=== PATIENT | male | born 1985 | race Caucasian/White ===

== ENCOUNTER 2019-08-03 15:31 | Inpatient (IN) ==
[2019-08-03] MEDS ORDERED: ACETAMINOPHEN 325 MG TABLET PO ONE (15:54)
[2019-08-03] MEDS ORDERED: cefTRIAXone 1 GM VIAL IV ONE (16:05)
--- NOTE | 2019-08-03 16:25 | XRay Report ---
INDICATION: left hand and wrist pain, edema TECHNIQUE: PA, oblique, lateral left wrist COMPARISON: None. FINDINGS: No left wrist fracture. No cortical destruction. No evidence for osteomyelitis. No soft tissue gas or radiopaque foreign body. 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 Mild degenerative disease in the left triscaphe joint and first carpal metacarpal joint IMPRESSION: 1. No acute abnormality 2. 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
[2019-08-03] MEDS ORDERED: KETOROLAC 30 MG/ML VIAL IV ONE (17:10)
[2019-08-03 17:27] LABS: Basophils # (Auto) 0.04 K/mcL (0.00-0.30); Basophils % (Auto) 0.3 % (0.0-2.0); Eosinophils # (Auto) 0.01 K/mcL (0.00-0.70); Eosinophils % (Auto) 0.1 % (0.0-7.0); Granulocytes % (Auto) 83.2 % (38.0-78.0); Hematocrit 37.7 % (40.1-51.0); Hemoglobin 12.5 g/dL (13.7-17.5); Lymphocytes % (Auto) 9.2 % (15.5-49.0); Mean Cell Volume 80.6 fL (80.0-100.0); Mean Corpuscular HGB Conc 33.2 g/dL (31.0-36.0); Mean Platelet Volume 9.6 fL (7.4-10.4); Monocytes # (Auto) 1.09 K/mcL (0.10-0.90); Monocytes % (Auto) 7.2 % (1.0-12.0); Platelet Count 270 K/mcL (140-440); RBC 4.68 M/mcL (4.63-6.08); Red Cell Distribution Width 12.7 % (11.5-14.5); WBC 15.2 K/mcL (4.50-11.00)
[2019-08-03 17:44] LABS: Chloride 96 mmol/L (96-108)
[2019-08-03 17:45] LABS: ALT/SGPT 22 U/l (0-40); AST/SGOT 20 U/l (0-37); Albumin 3.6 gm/dL (3.2-5.2); Albumin/Globulin Ratio 0.9 (1.0-2.3); Alkaline Phosphatase 82 U/L (39-117); Bilirubin,Total 0.4 mg/dL (0.0-1.0); Blood Urea Nitrogen 10 mg/dl (6-20); C-Reactive Protein 19.7 mg/dl (0.0-0.8); Calcium 9.1 mg/dl (8.6-10.4); Carbon Dioxide 27 mmol/L (22-30); Globulin 3.9 gm/dL (2.2-3.7); Glomerular Filtration Rate 111; Glucose 110 mg/dL (70-105)
--- NOTE | 2019-08-03 18:51 | Cat Scan Report ---
INDICATION: swelling, redness, warmth, decreased range of movement, poss absc TECHNIQUE: Axial images through the left forearm and wrist. Sagittal and coronal reformatted images COMPARISON: Plain film examination dated 08/03/2019 FINDINGS: Left radius and ulna are negative. There is no fracture. No cortical destruction. No evidence for osteomyelitis. 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 No left wrist fracture. Carpal bones are otherwise negative. No cortical destruction or evidence for osteomyelitis. Axial images demonstrate a normal hook of the hamate. There is a poorly defined soft tissue mass adjacent to the radial and volar aspects of the distal right radius. This mass is best identified on sagittal and coronal reformatted images. This measures approximately 4.8 x 3.3 x 3.3 cm. This appears to be intramuscular and involves flexor muscles including the flexor pollicis longus and flexor digitorum superficialis. Appearance is most consistent with hematoma. There are no gas bubbles, but this does not exclude abscess. Although this mass is near isodense it is relatively circumscribed on sagittal reformatted images. Patient complains of paresthesias. This mass could affect the median nerve. Clinical correlation median nerve neuropathy recommended (first through third digits). No other abnormality IMPRESSION: 1. 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 No left wrist or forearm fracture 2. Soft tissue mass which appears to be intramuscular along the radial and volar aspects of the distal left radius. 3. Mass is soft tissue density without gas bubbles. Findings are most consistent with hematoma although infection is not excluded. Interpreted and Authenticated by: Parker Moss 08/03/19
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
[2019-08-03] MEDS ORDERED: VANCOMYCIN PER PHARMACY IV ONE (19:30)
[2019-08-03] MEDS ORDERED: ceFAZolin 1 GM VIAL IV SCH (19:30)
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
[2019-08-03] MEDS ORDERED: VANCOMYCIN 1,500 MG in 0.9 % SODIUM CHLORIDE 500 ML IV ONE (19:56)
[2019-08-03] MEDS ORDERED: [UNRECOGNIZED DRUG - OTHER] SUBLINGUAL SCH (21:03)
[2019-08-03] MEDS ORDERED: MAGNESIUM SULFATE 2 GM/50 ML BAG IV PRN (21:03)
[2019-08-03] MEDS ORDERED: NALOXONE HCL SUBLINGUAL SCH (21:03)
[2019-08-03] MEDS ORDERED: BUPRENORPHINE HCL SUBLINGUAL SCH (21:03)
[2019-08-03] MEDS ORDERED: POTASSIUM CHLORIDE 20 MEQ TABLET PO PRN ×2 (21:03)
[2019-08-03] MEDS ORDERED: SENNOSIDES 1 TABLET PO PRN (21:03)
[2019-08-03] MEDS ORDERED: POTASSIUM CHLORIDE 40 MEQ in DEXTROSE 5% IN WATER 500 ML IV PRN (21:03)
[2019-08-03] MEDS ORDERED: POLYETHYLENE GLYCOL 3350 17 GM PACKET PO PRN (21:03)
[2019-08-03] MEDS ORDERED: ONDANSETRON 4 MG/2 ML VIAL IV PRN (21:03)
[2019-08-03] MEDS ORDERED: 0.9 % SODIUM CHLORIDE 1,000 ML IV SCH (21:03)
[2019-08-03] MEDS: LORazepam 2 MG/ML VIAL IV PRN (22:12)
[2019-08-03] MEDS: DOCUSATE SODIUM 100 MG CAPSULE PO SCH (22:13)
[2019-08-03] MEDS: 0.9 % SODIUM CHLORIDE 10 ML SYRINGE IV SCH (22:13)
[2019-08-03] MEDS: CLINDAMYCIN 600 MG in DEXTROSE 5% IN WATER 50 ML IV SCH ×2 (22:53)
[2019-08-03] MEDS: CLINDAMYCIN 600 MG/4 ML VIAL ONE ×2 (22:53)
[2019-08-03] MEDS: HYDROcodone/APAP 5/325MG TABLET PO PRN (23:56)
[2019-08-03] MEDS: PIPERACILLIN SODIUM/TAZOBACTAM 3.375 GM in DEXTROSE 5% IN WATER 50 ML IV SCH (23:57)
[2019-08-04] MEDS: LORazepam 2 MG/ML VIAL IV PRN ×4 (02:16→21:09)
[2019-08-04] MEDS: HYDROcodone/APAP 5/325MG TABLET PO PRN (04:26)
[2019-08-04] MEDS: PIPERACILLIN SODIUM/TAZOBACTAM 3.375 GM in DEXTROSE 5% IN WATER 50 ML IV SCH ×4 (06:05→23:59)
[2019-08-04] MEDS: 0.9 % SODIUM CHLORIDE 10 ML SYRINGE IV SCH ×3 (06:05→21:10)
[2019-08-04 06:18] LABS: Basophils # (Auto) 0.06 K/mcL (0.00-0.30); Basophils % (Auto) 0.5 % (0.0-2.0); Eosinophils # (Auto) 0.13 K/mcL (0.00-0.70); Granulocytes % (Auto) 74.7 % (38.0-78.0); Hemoglobin 11.7 g/dL (13.7-17.5); Lymphocytes # (Auto) 1.96 K/mcL (1.50-4.80); Lymphocytes % (Auto) 15.4 % (15.5-49.0); Mean Corpuscular HGB Conc 32.5 g/dL (31.0-36.0); Mean Platelet Volume 9.7 fL (7.4-10.4); Monocytes # (Auto) 1.07 K/mcL (0.10-0.90); Monocytes % (Auto) 8.4 % (1.0-12.0); Platelet Count 241 K/mcL (140-440); RBC 4.39 M/mcL (4.63-6.08); Red Cell Distribution Width 12.9 % (11.5-14.5); WBC 12.8 K/mcL (4.50-11.00)
[2019-08-04 06:43] LABS: ALT/SGPT 19 U/l (0-40); AST/SGOT 13 U/l (0-37); Albumin 3.2 gm/dL (3.2-5.2); Albumin/Globulin Ratio 0.8 (1.0-2.3); Alkaline Phosphatase 78 U/L (39-117); Bilirubin,Direct < 0.2 mg/dL (0.0-0.3); Bilirubin,Total 0.3 mg/dL (0.0-1.0); Blood Urea Nitrogen 12 mg/dl (6-20); Calcium 8.8 mg/dl (8.6-10.4); Carbon Dioxide 28 mmol/L (22-30); Chloride 98 mmol/L (96-108); Globulin 3.9 gm/dL (2.2-3.7); Glomerular Filtration Rate 111; Glucose 106 mg/dL (70-105); Lactate Dehydrogenase 177 U/L (94-250); Phosphorous 3.3 mg/dL (2.7-4.5); Triglycerides 118 mg/dl (<150); Uric Acid 4.1 mg/dL (2.5-8.0)
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
[2019-08-04] MEDS: CLINDAMYCIN 600 MG in DEXTROSE 5% IN WATER 50 ML IV SCH (07:31)
[2019-08-04] MEDS ORDERED: HYDROcodone/APAP 10/325MG TABLET PO PRN (08:26)
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
[2019-08-04] MEDS ORDERED: VANCOMYCIN PER PHARMACY IV SCH ×2 (08:45→18:06)
[2019-08-04] MEDS: DOCUSATE SODIUM 100 MG CAPSULE PO SCH ×2 (08:54→19:49)
[2019-08-04] MEDS ORDERED: VANCOMYCIN 1,500 MG in 0.9 % SODIUM CHLORIDE 500 ML IV SCH (09:00)
[2019-08-04] MEDS: HYDROmorphone* 2 MG/ML VIAL IV PRN ×2 (13:31→14:33)
[2019-08-04] MEDS ORDERED: ROPIVACAINE HCL/PF 30 ML VIAL IJ ONE (15:28)
[2019-08-04] MEDS ORDERED: TRANEXAMIC ACID 1,000 MG/10 ML VIAL IV ONE (15:28)
[2019-08-04] MEDS ORDERED: KETAMINE 100 MG/ML ML IV ONE (15:28)
[2019-08-04] MEDS ORDERED: MIDAZOLAM 2 MG/2 ML VIAL IV ONE (15:28)
[2019-08-04] MEDS ORDERED: GLYCOPYRROLATE 0.2 MG/ML VIAL IV ONE (15:28)
[2019-08-04] MEDS ORDERED: DEXAMETHASONE 10 MG/ML VIAL IV ONE (15:28)
[2019-08-04] MEDS ORDERED: LIDOCAINE HCL/PF 100 MG/5 ML SYRINGE IV ONE (15:28)
[2019-08-04] MEDS ORDERED: PROPOFOL 200 MG/20 ML VIAL IV ONE (15:28)
[2019-08-04] MEDS ORDERED: ONDANSETRON 4 MG/2 ML VIAL IV ONE (15:28)
[2019-08-04] MEDS ORDERED: fentaNYL 100 MCG/2 ML VIAL IV ONE (15:28)
[2019-08-04] MEDS ORDERED: HYDROmorphone* 2 MG/ML VIAL IV PRN ×2 (16:00→18:06)
[2019-08-04] MEDS ORDERED: ONDANSETRON 4 MG/2 ML VIAL IV PRN ×2 (16:00→18:06)
[2019-08-04] MEDS ORDERED: LACTATED RINGERS 1,000 ML IV SCH (16:00)
[2019-08-04] MEDS ORDERED: MEPERIDINE 25 MG/ML SYRINGE IV PRN (16:00)
[2019-08-04] MEDS ORDERED: METHOCARBAMOL 1,000 MG/10 ML VIAL IV PRN (16:00)
[2019-08-04] MEDS ORDERED: IPRATROPIUM/ALBUTEROL 3 ML AMPUL.NEB NEB PRN (16:00)
--- NOTE | 2019-08-04 16:46 | Brief Operative Note ---
Date of procedure: 08/04/19 Pre-op diagnosis: Left wrist abscess Post-op diagnosis: same Procedure: left wrist abscess 2cm by 3 cm Grafts/Implants: Yes Anesthesia: GETA Complications Description: 08/04/19 16:46 none Surgeon: Rasta Phelan Stacker Driver: TERI Mendez Estimated blood loss (cc): 100 Tourniquet Time (Minutes): 10 Specimens Removed/Pathology: none sent Condition: stable Disposition: PACU
[2019-08-04] MEDS ORDERED: LORazepam 2 MG/ML VIAL IV ONE (16:55)
[2019-08-04] MEDS ORDERED: METOPROLOL TARTRATE 5 MG/5 ML VIAL IV ONE (17:30)
[2019-08-04] MEDS ORDERED: SENNOSIDES 1 TABLET PO PRN (18:06)
[2019-08-04] MEDS ORDERED: POTASSIUM CHLORIDE 40 MEQ in DEXTROSE 5% IN WATER 500 ML IV PRN (18:06)
[2019-08-04] MEDS ORDERED: MAGNESIUM SULFATE 2 GM/50 ML BAG IV PRN (18:06)
[2019-08-04] MEDS ORDERED: POLYETHYLENE GLYCOL 3350 17 GM PACKET PO PRN (18:06)
[2019-08-04] MEDS ORDERED: POTASSIUM CHLORIDE 20 MEQ TABLET PO PRN ×2 (18:06)
[2019-08-04] MEDS: HYDROcodone/APAP 10/325MG TABLET PO PRN ×2 (19:49→23:59)
[2019-08-04] MEDS: VANCOMYCIN 1,500 MG in 0.9 % SODIUM CHLORIDE 500 ML IV SCH (21:10)
[2019-08-04] MEDS: DIAZEPAM 2 MG TABLET PO PRN (22:49)
[2019-08-05] MEDS: LORazepam 2 MG/ML VIAL IV PRN ×6 (01:56→22:42)
[2019-08-05] MEDS: HYDROcodone/APAP 10/325MG TABLET PO PRN ×4 (04:08→15:58)
[2019-08-05] MEDS: 0.9 % SODIUM CHLORIDE 10 ML SYRINGE IV SCH ×4 (05:50→20:05)
[2019-08-05] MEDS: PIPERACILLIN SODIUM/TAZOBACTAM 3.375 GM in DEXTROSE 5% IN WATER 50 ML IV SCH ×3 (05:50→18:30)
--- NOTE | 2019-08-05 07:00 | Operative Note ---
DATE OF OPERATION: 08/04/2019 PREOPERATIVE DIAGNOSIS: Left wrist abscess. POSTOPERATIVE DIAGNOSIS: Left wrist abscess. PROCEDURE: Left wrist abscess I and D with placement of a drain. SURGEON: Rasta Phelan MD [employer] OPERATOR: None. ANESTHESIA: General LMA anesthesia by Dr. Gray. TOTAL TOURNIQUET TIME: Approximately 15 minutes. ESTIMATED BLOOD LOSS: 100 mL, pus retrieved about 25 mL. DESCRIPTION OF PROCEDURE: The patient was brought to the operating room and put to sleep with general LMA anesthesia. Once asleep, the patient had the left arm sterilely prepped and draped in the usual sterile fashion. A timeout was performed confirming the operative site by initials, consent form and x-rays. Once done, we were able to confirm the area. An incision about an inch and a half long was made in a linear fashion over the flexor carpi radialis. We identified the flexor sheath and identified an abscess. There was significant induration around the wrist area. The chronicity of the problem was quite evident. The pus pocket was about 2 x 3 x 2 cm. The pus was easily retrieved and evacuated. I then placed a COLETTE drain into the wound and this was passed subcutaneous. Once this was done, we deflated the tourniquet and closed the skin with 3-0 Monocryl and then randall. Once this was done, we then irrigated thoroughly and the total irrigation through the wound was about 1000 mL. The patient tolerated this well. The tourniquet was inflated to 220 pound of pressure and deflated at approximately 15 minutes. Sterile bandage was applied. There were no complications. RBH:kh Job ID: [id number] Doc ID: [id number] Rasta Phelan MD
[2019-08-05] MEDS ORDERED: ENOXAPARIN 40 MG/0.4 ML SYRINGE SQ ONE (07:42)
--- NOTE | 2019-08-05 07:43 | Internal Med Progress Note ---
Medical - PN: Subj Patient information: Note initiated : 08/05/19 at 7:39 am Service Date, if different from initiated Date: [] Patient: Phil Tucker a 34 y/o M admitted on 08/03/19 for swollen left hand. Chief Complaint: [] Interval history: Mr. Tucker is a 34 year old M 34-year-old presents to the ED for increasing redness swelling and pain of his left hand wrist forearm started 3 days ago. Patient states injured initially while being handcuffed in July 07. He states it was just abrasions about 3 days ago and started swelling and becoming red and tender. Has a hard time making a fist or flexing extending his wrist because of the swelling. He complains of fevers chills past several days and headaches. CT of the wrist shows appears to be an abscess. Dr. Keller orthopedic surgery was contacted from the ED who will consult on the patient. Patient will likely need I&D. 08/03 Patient feels as swelling is slightly improved. He has decreased sensation in the hand. But is able to move his fingers a little bit more. Redness appears to be slightly improved. 08/04 States poor sleep last night after the nerve block wore off. Current as needed morphine dose does not seem to be helping much. Otherwise no complaints. Review of Systems: Headaches and chills . denies fever/nausea/vomiting/chest or abdominal pain/cough/dyspnea/diarrhea. Otherwise see above. - Constitutional Vitals: Vital Signs Temp Pulse Resp BP Pulse Ox 97.6 F 64 18 139/87 96 08/05/19 07:13 08/05/19 07:13 08/05/19 07:13 08/05/19 07:13 08/05/19 07:13 Period Temp Pulse Resp BP Sys/Stevenson Pulse Ox Last 24 Hr 97.3 F-98.7 F 64-121 16-24 126-192/75-110 93-99 Intake and Output 08/04/19 08/05/19 08/05/19 21:59 05:59 13:59 Intake Total 1400 50 Output Total 100 15 Balance 1300 35 Weight 108.545 kg Intake & Output: Intake & Output 08/04/19 08/05/19 08/05/19 21:59 05:59 13:59 Intake Total 1400 50 Output Total 100 15 Balance 1300 35 Weight 108.545 kg Intake: IV 100 50 Lactated Ringers 1,000 ml @ 20 100 mls/hr IV .Q24H [facility] Rx#: [id number] Zosyn 3.375 gm In Dextrose 5% 50 in Water 50 ml @ 100 mls/hr IV Q6H [facility] Rx#:[id number] IV - Manual Only 1300 Output: Drainage 15 Left Wrist 15 Estimated Blood Loss 100 Other: Urine Appearance Clear Clear Urine Odor Normal Normal # Voids 1 1 Exam: General: Alert, Awake, No acute Distress Eyes/N/T: EOMI, Head/Neck: neck supple, CV: RRR, No murmurs, Pulm: Clear b/l, no wheezing/rhonchi/rales Abd: soft, nontender, +BS x4 Ext: no clubbing/cyanosis/edema LEs, Left hand/wrist in dressings, needle track dominguez b/l antecubital space Neuro: Alert, no focal deficits, moves all extremities, Skin: warm/dry Medical - PN: Obj Da - Labs CBC & Chem 7: 08/04/19 05:18 08/04/19 05:18 Labs: Abnormal Lab Results 08/04/19 08/04/19 08/03/19 05:18 05:18 16:35 WBC 12.8 H RBC 4.39 L Hgb 11.7 L Hct 36.0 L Gran % Lymph % (Auto) 15.4 L Gran # 9.53 H Lymph # (Auto) [place] # (Auto) 1.07 H Glucose 106 H 110 H C-Reactive Protein 18.0 H 19.7 H Globulin 3.9 H 3.9 H Albumin/Globulin Ratio 0.8 L 0.9 L 08/03/19 16:35 WBC 15.2 H RBC Hgb 12.5 L Hct 37.7 L Gran % 83.2 H Lymph % (Auto) 9.2 L Gran # 12.63 H Lymph # (Auto) 1.40 L [place] # (Auto) 1.09 H Glucose C-Reactive Protein Globulin Albumin/Globulin Ratio Meds: Medications Hydrocodone Bitart/Acetaminophen ([place] 10/325mg) 1 - 2 tab PO Q4HP PRN; Protocol PRN Reason: Per Pain Protocol Last Admin: 08/05/19 04:08 Dose: 2 tab Documented by: Diazepam (Valium) 2 mg PO HSP PRN PRN Reason: ANXIETY/SEDATION Last Admin: 08/04/19 22:49 Dose: 2 mg Documented by: Docusate Sodium (Colace) 100 mg PO BID [facility] Last Admin: 08/04/19 19:49 Dose: 100 mg Documented by: Hydromorphone HCl (Dilaudid) 0.5 mg IV Q1HP PRN; Protocol PRN Reason: Per Pain Protocol Potassium Chloride 40 meq/ (Dextrose) 520 mls @ 130 mls/hr IV UD PRN PRN Reason: Potassium < 3 Magnesium Sulfate (Magnesium Sulfate) 2 gm in 50 mls @ 50 mls/hr IV UD PRN PRN Reason: Magnesium </= 1.6 Piperacillin Sod/Tazobactam (Sod 3.375 gm/ Dextrose) 50 mls @ 100 mls/hr IV Q6H [facility]; Protocol Last Admin: 08/05/19 05:50 Dose: 100 mls/hr Documented by: Vancomycin HCl 1,500 mg/ (Sodium Chloride) 500 mls @ 333.3 mls/hr IV Q12H [facility] Last Admin: 08/04/19 21:10 Dose: 333.3 mls/hr Documented by: Lorazepam (Ativan) 0.5 mg IV Q4-6HP PRN PRN Reason: ANXIETY/SEDATION Last Admin: 08/05/19 05:49 Dose: 0.5 mg Documented by: Morphine Sulfate (Morphine) 0 mg IV Q3HP PRN PRN Reason: Pain Last Admin: 08/05/19 06:39 Dose: 3 mg Documented by: Ondansetron HCl (Zofran) 4 mg IV Q4HP PRN PRN Reason: Nausea And Vomiting Polyethylene Glycol (Miralax) 17 gm PO DAILYP PRN PRN Reason: Constipation Potassium Chloride (Kdur) 40 meq PO UD PRN PRN Reason: Potssium is 3-3.5 Potassium Chloride (Kdur) 40 meq PO UD PRN PRN Reason: Potassium < 3 Senna (Senokot) 2 tab PO DAILYP PRN PRN Reason: Constipation Sodium Chloride (Saline Flush) 10 ml IV Q8 [facility] Last Admin: 08/05/19 05:50 Dose: 10 ml Documented by: Vancomycin HCl (Vancomycin Per Pharmacy) 1 order IV [facility] [place] Medical - PN: A/P - Time Spent With Patient Total time spent is greater than 50% in coordination of care (as documented) at patient's floor/unit and/or counseling patient: - Narrative A/P Narrative: A: *Left upper extremity cellulitis w/Abscess: s/p I&D (08/05) -h/o MRSA (+) wound cultures in past *SIRS (Tachy/leukocytosis): -improving *h/o substance abuse: denies currently *h/o Anxiety/Depression P: -Vanc/zosyn, pending cultures -Dr. Phelan for Ortho following -serum drug screen pending, he would not provide urine sample - -ppx: SCD/Ambulation Medical - PN: Qual - VTE Deep Vein Thrombosis/Pulmonary Embolism Present on Admission: No
[2019-08-05] MEDS: DOCUSATE SODIUM 100 MG CAPSULE PO SCH ×2 (08:02→20:06)
[2019-08-05 10:13] LABS: Basophils # (Auto) 0.02 K/mcL (0.00-0.30); Basophils % (Auto) 0.2 % (0.0-2.0); Eosinophils # (Auto) 0.01 K/mcL (0.00-0.70); Eosinophils % (Auto) 0.1 % (0.0-7.0); Granulocytes % (Auto) 84.2 % (38.0-78.0); Hematocrit 34.1 % (40.1-51.0); Hemoglobin 11.8 g/dL (13.7-17.5); Lymphocytes % (Auto) 10.5 % (15.5-49.0); Mean Cell Volume 79.1 fL (80.0-100.0); Mean Corpuscular HGB Conc 34.6 g/dL (31.0-36.0); Mean Platelet Volume 10.4 fL (7.4-10.4); Monocytes # (Auto) 0.62 K/mcL (0.10-0.90); Platelet Count 281 K/mcL (140-440); RBC 4.31 M/mcL (4.63-6.08); Red Cell Distribution Width 12.9 % (11.5-14.5); WBC 12.4 K/mcL (4.50-11.00)
[2019-08-05] MEDS: VANCOMYCIN 1,500 MG in 0.9 % SODIUM CHLORIDE 500 ML IV SCH ×3 (10:54→22:42)
[2019-08-05 11:04] LABS: Blood Urea Nitrogen 13 mg/dl (6-20); Calcium 9.3 mg/dl (8.6-10.4); Carbon Dioxide 23 mmol/L (22-30); Chloride 102 mmol/L (96-108); Glomerular Filtration Rate 111; Glucose 136 mg/dL (70-105)
--- NOTE | 2019-08-05 13:54 | Orthopedic Progress Note ---
Subjective Patient information: Note initiated : 08/05/19 at 1:53 pm Service Date, if different from initiated Date: [] Patient: Phil Tucker 34 y/o M admitted on 08/03/19 for swollen left hand. Chief Complaint: [pain is less and eating well but co anxiety] Principal diagnosis: left wrist abscess and cellutlitis Objective Vital signs: Vital Signs Temp Pulse Resp BP BP Pulse Ox 08/05/19 11:45 98.0 F 70 18 125/75 96 08/05/19 07:13 97.6 F 64 18 139/87 96 08/05/19 04:04 97.3 F 108 H 16 130/75 97 08/04/19 23:55 98.7 F 67 18 137/82 95 08/04/19 20:57 101 H 152/97 08/04/19 19:58 88 128/79 95 08/04/19 18:58 103 H 158/104 08/04/19 18:43 121 H 149/79 08/04/19 18:00 98.4 F 79 16 143/104 93 08/04/19 17:55 98.0 F 67 16 143/80 97 08/04/19 17:40 97.9 F 68 18 154/85 08/04/19 17:10 98.7 F 89 20 177/107 99 08/04/19 16:53 98.0 F 92 H 24 H 192/109 08/04/19 16:49 97.7 F 78 19 126/76 149/90 99 08/04/19 16:48 97.8 F 81 19 158/110 98 08/04/19 16:43 97.8 F 77 22 143/88 08/04/19 16:38 98.0 F 79 24 H 142/82 97 Intake and Output 08/04/19 08/05/19 08/05/19 21:59 05:59 13:59 Intake Total 1450 550 50 Output Total 100 15 Balance 1350 535 50 Intake: IV 150 550 50 Lactated Ringers 1,000 ml @ 20 100 mls/hr IV .Q24H [facility] Rx#: [id number] Zosyn 3.375 gm In Dextrose 5% 50 50 50 in Water 50 ml @ 100 mls/hr IV Q6H [facility] Rx#:[id number] Vancomycin 1,500 mg In Sodium 500 Chloride 0.9% 500 ml @ 333.3 mls/hr IV Q12H [facility] Rx#: [id number] IV - Manual Only 1300 Output: Drainage 15 Left Wrist 15 Estimated Blood Loss 100 Other: Urine Appearance Clear Clear Urine Odor Normal Normal # Voids 1 1 Weight 239 lb 4.8 oz Intake & Output: Intake & Output 08/04/19 08/05/19 08/05/19 21:59 05:59 13:59 Intake Total 1450 550 50 Output Total 100 15 Balance 1350 535 50 Weight 239 lb 4.8 oz Intake: IV 150 550 50 Lactated Ringers 1,000 ml @ 20 100 mls/hr IV .Q24H [facility] Rx#: [id number] Zosyn 3.375 gm In Dextrose 5% 50 50 50 in Water 50 ml @ 100 mls/hr IV Q6H [facility] Rx#:[id number] Vancomycin 1,500 mg In Sodium 500 Chloride 0.9% 500 ml @ 333.3 mls/hr IV Q12H [facility] Rx#: [id number] IV - Manual Only 1300 Output: Drainage 15 Left Wrist 15 Estimated Blood Loss 100 Other: Urine Appearance Clear Clear Urine Odor Normal Normal # Voids 1 1 - Labs CBC & BMP: 08/05/19 09:33 08/05/19 09:33 Labs: 08/05/19 08/04/19 08/03/19 09:33 05:18 16:35 Hgb 11.8 L 11.7 L 12.5 L Hct 34.1 L 36.0 L 37.7 L
[2019-08-05] MEDS ORDERED: oxyCODONE/APAP 10/325MG TABLET PO PRN (18:57)
[2019-08-05] MEDS ORDERED: oxyCODONE/APAP 10/325MG TABLET PO ONE ×2 (20:03→21:53)
[2019-08-05] MEDS: oxyCODONE/APAP 10/325MG TABLET PO PRN ×2 (20:04→21:52)
[2019-08-05] MEDS: MELATONIN 3 MG TABLET PO SCH (20:05)
[2019-08-05] MEDS: DIAZEPAM 2 MG TABLET PO PRN (20:05)
[2019-08-05] MEDS: diphenhydrAMINE 25 MG CAPSULE PO PRN (21:53)
[2019-08-06] MEDS ORDERED: oxyCODONE/APAP 10/325MG TABLET PO ONE (00:12)
[2019-08-06] MEDS: oxyCODONE/APAP 10/325MG TABLET PO PRN ×9 (00:15→22:33)
[2019-08-06] MEDS: PIPERACILLIN SODIUM/TAZOBACTAM 3.375 GM in DEXTROSE 5% IN WATER 50 ML IV SCH ×3 (00:22→12:31)
[2019-08-06] MEDS: 0.9 % SODIUM CHLORIDE 10 ML SYRINGE IV SCH ×2 (05:14→14:35)
[2019-08-06] MEDS: VANCOMYCIN 1,500 MG in 0.9 % SODIUM CHLORIDE 500 ML IV SCH ×3 (05:46→22:34)
[2019-08-06] MEDS: LORazepam 2 MG/ML VIAL IV PRN ×4 (05:52→18:46)
[2019-08-06 06:52] LABS: Blood Urea Nitrogen 13 mg/dl (6-20); Carbon Dioxide 24 mmol/L (22-30); Chloride 104 mmol/L (96-108); Glomerular Filtration Rate 111; Glucose 87 mg/dL (70-105)
[2019-08-06 06:53] LABS: C-Reactive Protein 5.2 mg/dl (0.0-0.8)
[2019-08-06 07:19] LABS: Basophils # (Auto) 0.05 K/mcL (0.00-0.30); Basophils % (Auto) 0.6 % (0.0-2.0); Eosinophils # (Auto) 0.06 K/mcL (0.00-0.70); Eosinophils % (Auto) 0.7 % (0.0-7.0); Granulocytes % (Auto) 60.1 % (38.0-78.0); Hematocrit 34.6 % (40.1-51.0); Hemoglobin 11.4 g/dL (13.7-17.5); Lymphocytes # (Auto) 2.84 K/mcL (1.50-4.80); Lymphocytes % (Auto) 32.3 % (15.5-49.0); Mean Corpuscular HGB Conc 32.9 g/dL (31.0-36.0); Mean Platelet Volume 11.4 fL (7.4-10.4); Monocytes # (Auto) 0.55 K/mcL (0.10-0.90); Monocytes % (Auto) 6.3 % (1.0-12.0); Platelet Count 203 K/mcL (140-440); RBC 4.27 M/mcL (4.63-6.08); Red Cell Distribution Width 13.2 % (11.5-14.5); WBC 8.8 K/mcL (4.50-11.00)
[2019-08-06] MEDS: DOCUSATE SODIUM 100 MG CAPSULE PO SCH ×2 (12:13→20:43)
--- NOTE | 2019-08-06 16:02 | Infectious Disease Consult ---
History of Present Illness Patient information: Note initiated : 08/06/19 at 4:00 pm Service Date, if different from initiated Date: [] Patient: Phil Tucker 34 y/o M admitted on 08/03/19 for swollen left hand. Chief Complaint: [] Consult date: 08/06/19 Requesting Physician: Andrea Toledo Reason for Consult: Left wrist abscess Chief complaint: my left hand hurts History of present illness: 34 year old man with past Hx of injection drug use admitted with left hand swelling, redness and pus drainage. It started a week ago when pt was released from nursing home. Pt mentions that at site of where handcuffs where, he started noticing redness initially, which was followed by development of swelling, pus. It progressed significantly causing lot of pain due to which he came to the hospital. He denied any fights, bite induced trauma, fever, chills, injection drug use. Mentions that last injection drug use was about 8 years ago. Pt underwent I&D by Dr Phelan on 08/04/19 with 2 x 3 x 2 cm abscess, with involvement of flexor carpi radialis tendon sheath. No operative cultures sent. Blood Cx sent have been neg. At time of visit, pt endorses left wrist pain, rates it 8/10. Endorses stiffness in movement of fingers. Denied any fever, chills, n/v, diarrhea. Review of Systems All systems PM: reviewed and no additional remarkable complaints except as stated Constitutional: as per HPI Past History Past medical history: has past Hx of injection drug use, kapoor over the right calf Past family history: no sick contacts Medications and Allergies Home Medications Medication Instructions Recorded Confirmed Type buprenorphine 8 mg-naloxone 2 mg 8 mg SUBLINGUAL TID tab 10/11/15 08/04/19 History sublingual tablet Diazepam [Valium] 2 mg PO HS PRN 08/03/19 08/04/19 History Doxycycline [Vibramycin] 100 mg PO Q12H #20 tab 08/08/19 Rx Hydrocodone/APAP 7.5/325Mg [[place] 1 tab PO Q6HP PRN #20 tab 08/08/19 Rx 7.5-325Mg] Levofloxacin [Levaquin] 750 mg PO DAILY #10 tab 08/08/19 Rx Allergies Allergy/AdvReac Type Severity Reaction Status Date / Time No Known Drug Allergies Allergy Verified 08/03/19 23:25 Physical Examination Vital signs: Temp Pulse Resp BP Pulse Ox 36.9 C 88 16 132/76 96 08/06/19 12:00 08/06/19 12:00 08/06/19 12:00 08/06/19 12:00 08/06/19 12:00 General appearance: no acute distress Eyes pulmonary: nonicteric ENT: oropharynx moist Neck: no lymphadenopathy Effort: normal Gastrointestinal: soft, non-tender, non-distended Integumentary: other (has scars from prior injection drug use) Extremities: other (has area of redness with a circular , 3 x 2 cm ulcer on dorsum of foot. No warmth, drainage. Minimal swelling, with skin wrinkling (suggesting resolving swelling). DP artery palpable. No pain with movements of toes and ankle. Left wrist, forearm wrapped in dressing with a COLETTE drain putting out bloody drainage, no pus. ) Musculoskeletal: ROM normal Gait: normal posture Results - Laboratory Findings CBC and BMP: 08/06/19 05:30 08/06/19 05:30 Abnormal lab findings: Abnormal Labs 08/03/19 08/03/19 08/04/19 16:35 16:35 05:18 WBC 15.2 H 12.8 H RBC 4.39 L Hgb 12.5 L 11.7 L Hct 37.7 L 36.0 L MCV MPV Gran % 83.2 H Lymph % (Auto) 9.2 L 15.4 L Gran # 12.63 H 9.53 H Lymph # (Auto) 1.40 L [place] # (Auto) 1.09 H 1.07 H Glucose 110 H C-Reactive Protein 19.7 H Globulin 3.9 H Albumin/Globulin Ratio 0.9 L 08/04/19 08/05/19 08/05/19 05:18 09:33 09:33 WBC 12.4 H RBC 4.31 L Hgb 11.8 L Hct 34.1 L MCV 79.1 L MPV Gran % 84.2 H Lymph % (Auto) 10.5 L Gran # 10.47 H Lymph # (Auto) 1.30 L [place] # (Auto) Glucose 106 H 136 H C-Reactive Protein 18.0 H Globulin 3.9 H Albumin/Globulin Ratio 0.8 L 08/06/19 08/06/19 05:30 05:30 WBC RBC 4.27 L Hgb 11.4 L Hct 34.6 L MCV MPV 11.4 H Gran % Lymph % (Auto) Gran # Lymph # (Auto) [place] # (Auto) Glucose C-Reactive Protein 5.2 H Globulin Albumin/Globulin Ratio Microbiology: Microbiology 08/03/19 17:05 Blood Blood Culture - Preliminary 08/03/19 16:37 Blood Blood Culture - Preliminary 08/03/19 21:10 Nose MRSA (PCR) - Final Assessment and Plan - Narrative A/P Narrative: A: 1. Left wrist abscess with flexor tenosynovitis (stage 2 based on Michon Classification Scheme): possible seeding of skin & soft-tissue due to trauma from hand-cuffs (during recent stay at nursing home) - s/p I&D by Dr Phelan on 08/04/19 with 2 x 3 x 2 cm abscess, with involvement of flexor carpi radialis tendon sheath. No operative cultures sent. In absence of cultures and going with epidemiology; likely causative pathogens include: Staphylococcus aureus, Staph lugdunensis, Group B Strept, Group A Strept, Strept angionosus/mitis group, Strept pneumoniae, gram-neg enteric bacteria - blood Cx neg so far. MRSA nasal PCR neg - On IV Vanc and IV Zosyn. Vanc trough 14.4 - no systemic signs/symptoms of infection 2. 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 redness and swelling resolving 3. Prior injection drug use - UDS pending from admission Recommendations: - Stop IV Zosyn - Continue IV Vanc per pharmacy assisted dosing. - Start IV Ceftriaxone 2 gm q24 hrs - spoke with CM about looking into the possibility of whether IV Oritavancin 1200 mg q weekly inj x 2 weeks would be covered by pt's insurance as outpatient if yes, will plan that otherwise decide PO antibiotic options tomorrow - anticipate duration of therapy 2 weeks from 08/04/19 will follow Augustine Marcelo MD Infectious diseases
[2019-08-06] MEDS: cefTRIAXone 2 GM in DEXTROSE 5% IN WATER 50 ML IV SCH (17:38)
[2019-08-06] MEDS: DIAZEPAM 2 MG TABLET PO PRN (22:33)
[2019-08-06] MEDS: diphenhydrAMINE 25 MG CAPSULE PO PRN (22:33)
[2019-08-06] MEDS: MELATONIN 3 MG TABLET PO SCH (22:33)
--- NOTE | 2019-08-06 23:40 | Internal Med Progress Note ---
Medical - PN: Subj Patient information: Note initiated : 08/06/19 at 11:39 pm Service Date, if different from initiated Date: [] Patient: Phil Tucker a 34 y/o M admitted on 08/03/19 for swollen left hand. Chief Complaint: [] Interval history: Mr. Tucker is a 34 year old M 34-year-old presents to the ED for increasing redness swelling and pain of his left hand wrist forearm started 3 days ago. Patient states injured initially while being handcuffed in July 07. He states it was just abrasions about 3 days ago and started swelling and becoming red and tender. Has a hard time making a fist or flexing extending his wrist because of the swelling. He complains of fevers chills past several days and headaches. CT of the wrist shows appears to be an abscess. Dr. Keller orthopedic surgery was contacted from the ED who will consult on the patient. Patient will likely need I&D. 08/03 Patient feels as swelling is slightly improved. He has decreased sensation in the hand. But is able to move his fingers a little bit more. Redness appears to be slightly improved. 08/04 States poor sleep last night after the nerve block wore off. Current as needed morphine dose does not seem to be helping much. Otherwise no complaints. 08/05 Pt does not have new complaints. Still has pain from the arm. But denies fever/chills/n/v. As per ID Dr. Marcelo, we will check his insurance to see if IV Oritavancin 1200 mg q weekly inj x 2 weeks would be covered by pt's insurance as outpatient if yes, will plan that otherwise decide PO antibiotic options Review of Systems: Headaches and chills . denies fever/nausea/vomiting/chest or abdominal pain/cough/dyspnea/diarrhea. Otherwise see above. - Constitutional Vitals: Vital Signs Temp Pulse Resp BP Pulse Ox 97.9 F 70 20 138/90 96 08/06/19 20:00 08/06/19 16:00 08/06/19 20:25 08/06/19 20:25 08/06/19 20:25 Period Temp Pulse Resp BP Sys/Stevenson Pulse Ox Last 24 Hr 96.7 F-98.4 F 58-88 16-70 127-159/76-95 94-99 Intake and Output 08/06/19 08/06/19 08/07/19 13:59 21:59 05:59 Intake Total 840 740 Balance 840 740 Weight 112.037 kg Patient Weight 08/07/19 05:59 Weight 112.037 kg Intake & Output: Intake & Output 08/06/19 08/06/19 08/07/19 13:59 21:59 05:59 Intake Total 840 740 Balance 840 740 Weight 112.037 kg Intake: IV 600 500 Zosyn 3.375 gm In Dextrose 5% 100 in Water 50 ml @ 100 mls/hr IV Q6H [facility] Rx#:[id number] Vancomycin 1,500 mg In Sodium 500 500 Chloride 0.9% 500 ml @ 333.3 mls/hr IV Q8H [facility] Rx#:[id number] Oral 240 240 Other: Meal Lunch Lunch Percent of Meal Consumed 100% 100% Stool Size Moderate Stool Consistency Liquid # Voids 3 1 1 # Bowel Movements 1 - Additional findings Additional findings: General: Alert, Awake, No acute Distress Eyes/N/T: EOMI, Head/Neck: neck supple, CV: RRR, No murmurs, Pulm: Clear b/l, no wheezing/rhonchi/rales Abd: soft, nontender, +BS x4 Ext: no clubbing/cyanosis/edema LEs, Left hand/wrist in dressings, moderate to severe tenderness, needle track dominguez b/l antecubital space Neuro: Alert, no focal deficits, moves all extremities, Skin: warm/dry Psych: normal mood Medical - PN: Obj Da - Labs CBC & Chem 7: 08/06/19 05:30 08/06/19 05:30 Labs: Abnormal Lab Results 08/06/19 08/06/19 08/05/19 05:30 05:30 09:33 WBC RBC 4.27 L Hgb 11.4 L Hct 34.6 L MCV MPV 11.4 H Gran % Lymph % (Auto) Gran # Lymph # (Auto) [place] # (Auto) Glucose 136 H C-Reactive Protein 5.2 H Globulin Albumin/Globulin Ratio 08/05/19 08/04/19 08/04/19 09:33 05:18 05:18 WBC 12.4 H 12.8 H RBC 4.31 L 4.39 L Hgb 11.8 L 11.7 L Hct 34.1 L 36.0 L MCV 79.1 L MPV Gran % 84.2 H Lymph % (Auto) 10.5 L 15.4 L Gran # 10.47 H 9.53 H Lymph # (Auto) 1.30 L [place] # (Auto) 1.07 H Glucose 106 H C-Reactive Protein 18.0 H Globulin 3.9 H Albumin/Globulin Ratio 0.8 L Meds: Medications Diazepam (Valium) 2 mg PO HSP PRN PRN Reason: ANXIETY/SEDATION Last Admin: 08/06/19 22:33 Dose: 2 mg Documented by: Diphenhydramine HCl (Benadryl) 25 mg PO HSP PRN PRN Reason: Insomnia Last Admin: 08/06/19 22:33 Dose: 25 mg Documented by: Docusate Sodium (Colace) 100 mg PO BID [facility] Last Admin: 08/06/19 20:43 Dose: Not Given Documented by: Hydromorphone HCl (Dilaudid) 0.5 mg IV Q1HP PRN; Protocol PRN Reason: Per Pain Protocol Last Admin: 08/06/19 18:45 Dose: 0.5 mg Documented by: Potassium Chloride 40 meq/ (Dextrose) 520 mls @ 130 mls/hr IV UD PRN PRN Reason: Potassium < 3 Magnesium Sulfate (Magnesium Sulfate) 2 gm in 50 mls @ 50 mls/hr IV UD PRN PRN Reason: Magnesium </= 1.6 Vancomycin HCl 1,500 mg/ (Sodium Chloride) 500 mls @ 333.3 mls/hr IV Q8H [facility] Last Admin: 08/06/19 22:34 Dose: 333 mls/hr Documented by: Ceftriaxone Sodium 2 gm/ (Dextrose) 50 mls @ 100 mls/hr IV DAILY [facility]; Protocol Last Admin: 08/06/19 17:38 Dose: 100 mls/hr Documented by: Lorazepam (Ativan) 0.5 mg IV Q4-6HP PRN PRN Reason: ANXIETY/SEDATION Last Admin: 08/06/19 18:46 Dose: 0.5 mg Documented by: Melatonin (Melatonin 3mg Tablet) 3 mg PO QHS [facility] Last Admin: 08/06/19 22:33 Dose: 3 mg Documented by: Morphine Sulfate (Morphine) 0 mg IV Q3HP PRN PRN Reason: Pain Last Admin: 08/06/19 20:37 Dose: 6 mg Documented by: Ondansetron HCl (Zofran) 4 mg IV Q4HP PRN PRN Reason: Nausea And Vomiting Oxycodone/Acetaminophen ([place] 10-325mg) 1 - 2 tab PO Q4HP PRN; Protocol PRN Reason: Per Pain Protocol Last Admin: 08/06/19 22:33 Dose: 2 tab Documented by: Polyethylene Glycol (Miralax) 17 gm PO DAILYP PRN PRN Reason: Constipation Potassium Chloride (Kdur) 40 meq PO UD PRN PRN Reason: Potssium is 3-3.5 Potassium Chloride (Kdur) 40 meq PO UD PRN PRN Reason: Potassium < 3 Senna (Senokot) 2 tab PO DAILYP PRN PRN Reason: Constipation Sodium Chloride (Saline Flush) 10 ml IV Q8 [facility] Last Admin: 08/06/19 14:35 Dose: 10 ml Documented by: Vancomycin HCl (Vancomycin Per Pharmacy) 1 order IV UD [facility] Medical - PN: A/P - Time Spent With Patient Total time spent is greater than 50% in coordination of care (as documented) at patient's floor/unit and/or counseling patient: - Narrative A/P Narrative: Assessment: *Left upper extremity cellulitis w/Abscess: s/p I&D (08/05) -h/o MRSA (+) wound cultures in past *SIRS (Tachy/leukocytosis): -improving *h/o substance abuse: denies currently *h/o Anxiety/Depression Plan: - Stop IV Zosyn -Continue IV Vanc per pharmacy assisted dosing. -Start IV Ceftriaxone 2 gm q24 hrs -CM about looking into the possibility of whether IV Oritavancin 1200 mg q weekly inj x 2 weeks would be covered by pt's insurance as outpatient if yes, will plan that otherwise decide PO antibiotic options -anticipate duration of therapy 2 weeks from 08/04/19 -Dr. Marcelo will see pt in 2 wks. -Dr. Phelan for Ortho following -serum drug screen negative - -ppx: SCD/Ambulation Medical - PN: Qual - VTE Deep Vein Thrombosis/Pulmonary Embolism Present on Admission: No
[2019-08-07] MEDS: LORazepam 2 MG/ML VIAL IV PRN ×5 (00:18→21:40)
[2019-08-07] MEDS: 0.9 % SODIUM CHLORIDE 10 ML SYRINGE IV SCH ×5 (00:35→21:38)
[2019-08-07] MEDS: VANCOMYCIN 1,500 MG in 0.9 % SODIUM CHLORIDE 500 ML IV SCH ×3 (05:57→21:45)
[2019-08-07] MEDS: oxyCODONE/APAP 10/325MG TABLET PO PRN ×4 (05:57→21:37)
[2019-08-07] MEDS: DOCUSATE SODIUM 100 MG CAPSULE PO SCH ×2 (08:58→21:38)
[2019-08-07] MEDS ORDERED: cefTRIAXone 2 GM VIAL ONE (09:10)
[2019-08-07] MEDS: cefTRIAXone 2 GM in DEXTROSE 5% IN WATER 50 ML IV SCH (09:17)
--- NOTE | 2019-08-07 16:37 | Infectious Disease Prog Note ---
Subjective Patient information: Note initiated : 08/07/19 at 4:26 pm Service Date, if different from initiated Date: [] Patient: Phil Tucker 34 y/o M admitted on 08/03/19 for swollen left hand. Chief Complaint: [] Principal diagnosis: left wrist abscess and cellutlitis Interval history: Pt is doing fine overall. Endorses pain in left wrist area, rates 8/10. denies any fever, chills, n/v, diarrhea. Able to move hands, fingers with some stiffness. Objective Objective Narrative: ao x 3, in nad no thrush abd: non tender, non distended left hand: mild redness and swelling over left wrist, with randall in situ, no drainage. pt able to move fingers and wrist with some difficulty. No discoloration of fingers - Vital Signs Vital signs: Vital Signs Temp Pulse Resp BP Pulse Ox 08/07/19 10:50 36.5 C 80 16 166/99 98 08/07/19 06:55 36.4 C 20 123/80 94 08/07/19 04:00 36.6 C 75 14 131/88 96 08/07/19 00:00 36.6 C 20 132/90 96 08/06/19 20:00 36.6 C 18 132/90 96 Intake and Output 08/07/19 08/07/19 08/07/19 05:59 13:59 21:59 Intake Total 740 1270 500 Balance 740 1270 500 Intake: IV 500 550 500 Vancomycin 1,500 mg In Sodium 500 500 500 Chloride 0.9% 500 ml @ 333.3 mls/hr IV Q8H [facility] Rx#:[id number] Rocephin 2 gm In Dextrose 5% in 50 Water 50 ml @ 100 mls/hr IV DAILY [facility] Rx#:[id number] Oral 240 720 Other: Meal Lunch Percent of Meal Consumed 100% Feeding Ability Independent # Voids 1 Weight 112.037 kg Patient Weight 08/08/19 05:59 Weight 112.037 kg Intake & Output: Intake & Output 08/07/19 08/07/19 08/07/19 05:59 13:59 21:59 Intake Total 740 1270 500 Balance 740 1270 500 Weight 112.037 kg Intake: IV 500 550 500 Vancomycin 1,500 mg In Sodium 500 500 500 Chloride 0.9% 500 ml @ 333.3 mls/hr IV Q8H [facility] Rx#:[id number] Rocephin 2 gm In Dextrose 5% in 50 Water 50 ml @ 100 mls/hr IV DAILY [facility] Rx#:[id number] Oral 240 720 Other: Meal Lunch Percent of Meal Consumed 100% Feeding Ability Independent # Voids 1 - Lab 08/06/19 05:30 08/06/19 05:30 Most recent lab results Calcium 9.0 mg/dl (8.6-10.4) 08/06/19 05:30 Phosphorus 3.3 mg/dL (2.7-4.5) 08/04/19 05:18 Magnesium 2.0 mg/dL (1.6-2.5) 08/04/19 05:18 Microbiology 08/03/19 17:05 Blood Blood Culture - Preliminary 08/03/19 16:37 Blood Blood Culture - Preliminary 08/03/19 21:10 Nose MRSA (PCR) - Final Medications Active Medications: Diazepam (Valium) 2 mg PO HSP PRN PRN Reason: ANXIETY/SEDATION Last Admin: 08/06/19 22:33 Dose: 2 mg Documented by: Admin: 08/05/19 20:05 Dose: 2 mg Documented by: Admin: 08/04/19 22:49 Dose: 2 mg Documented by: KATALINA Diphenhydramine HCl (Benadryl) 25 mg PO HSP PRN PRN Reason: Insomnia Last Admin: 08/06/19 22:33 Dose: 25 mg Documented by: Admin: 08/05/19 21:53 Dose: 25 mg Documented by: DARRYN Docusate Sodium (Colace) 100 mg PO BID [facility] Last Admin: 08/07/19 08:58 Dose: Not Given Documented by: [email or web address] Non-Admin Reason: Patient Refused Admin: 08/06/19 20:43 Dose: Not Given Documented by: BRENT Non-Admin Reason: Patient Refused Admin: 08/06/19 12:13 Dose: Not Given Documented by: [email or web address] Non-Admin Reason: Loose Stool Admin: 08/05/19 20:06 Dose: Not Given Documented by: KATALINA Non-Admin Reason: Loose Stool Admin: 08/05/19 08:02 Dose: 100 mg Documented by: Admin: 08/04/19 19:49 Dose: 100 mg Documented by: KATALINA Hydromorphone HCl (Dilaudid) 0.5 mg IV Q1HP PRN; Protocol PRN Reason: Per Pain Protocol Last Admin: 08/06/19 18:45 Dose: 0.5 mg Documented by: BRENT Potassium Chloride 40 meq/ (Dextrose) 520 mls @ 130 mls/hr IV UD PRN PRN Reason: Potassium < 3 Magnesium Sulfate (Magnesium Sulfate) 2 gm in 50 mls @ 50 mls/hr IV UD PRN PRN Reason: Magnesium </= 1.6 Vancomycin HCl 1,500 mg/ (Sodium Chloride) 500 mls @ 333.3 mls/hr IV Q8H [facility] Last Infusion: 08/07/19 15:40 Dose: 0 mls/hr Documented by: Admin: 08/07/19 14:00 Dose: 333.3 mls/hr Documented by: Infusion: 08/07/19 08:59 Dose: 0 mls/hr Documented by: Admin: 08/07/19 05:57 Dose: 333 mls/hr Documented by: Infusion: 08/07/19 00:10 Dose: 0 mls/hr Documented by: Admin: 08/06/19 22:34 Dose: 333 mls/hr Documented by: Infusion: 08/06/19 16:10 Dose: 0 mls/hr Documented by: [email or web address] Admin: 08/06/19 14:35 Dose: 333.3 mls/hr Documented by: Infusion: 08/06/19 07:17 Dose: 333.3 mls/hr Documented by: Admin: 08/06/19 05:46 Dose: 333.3 mls/hr Documented by: Infusion: 08/06/19 00:13 Dose: 333.3 mls/hr Documented by: Admin: 08/05/19 22:42 Dose: 333.3 mls/hr Documented by: Infusion: 08/05/19 18:31 Dose: 0 mls/hr Documented by: Admin: 08/05/19 16:35 Dose: 333.3 mls/hr Documented by: CORINNA Ceftriaxone Sodium 2 gm/ (Dextrose) 50 mls @ 100 mls/hr IV DAILY [facility]; Protocol Last Infusion: 08/07/19 09:50 Dose: 0 mls/hr Documented by: Admin: 08/07/19 09:17 Dose: 100 mls/hr Documented by: Infusion: 08/06/19 18:10 Dose: 0 mls/hr Documented by: Admin: 08/06/19 17:38 Dose: 100 mls/hr Documented by: SHOBHA Lorazepam (Ativan) 0.5 mg IV Q4-6HP PRN PRN Reason: ANXIETY/SEDATION Last Admin: 08/07/19 10:40 Dose: 0.5 mg Documented by: Admin: 08/07/19 04:27 Dose: 0.5 mg Documented by: Admin: 08/07/19 00:18 Dose: 0.5 mg Documented by: Admin: 08/06/19 18:46 Dose: 0.5 mg Documented by: Admin: 08/06/19 14:54 Dose: 0.5 mg Documented by: Admin: 08/06/19 10:36 Dose: 0.5 mg Documented by: Admin: 08/06/19 05:52 Dose: 0.5 mg Documented by: Admin: 08/05/19 22:42 Dose: 0.5 mg Documented by: Admin: 08/05/19 18:29 Dose: 0.5 mg Documented by: Admin: 08/05/19 13:55 Dose: 0.5 mg Documented by: Admin: 08/05/19 09:47 Dose: 0.5 mg Documented by: Admin: 08/05/19 05:49 Dose: 0.5 mg Documented by: Admin: 08/05/19 01:56 Dose: 0.5 mg Documented by: Admin: 08/04/19 21:09 Dose: 0.5 mg Documented by: KATALINA Melatonin (Melatonin 3mg Tablet) 3 mg PO QHS [facility] Last Admin: 08/06/19 22:33 Dose: 3 mg Documented by: Admin: 08/05/19 20:05 Dose: 3 mg Documented by: KATALINA Morphine Sulfate (Morphine) 0 mg IV Q3HP PRN PRN Reason: Pain Last Admin: 08/07/19 16:01 Dose: 6 mg Documented by: Admin: 08/07/19 08:57 Dose: 6 mg Documented by: Admin: 08/07/19 04:21 Dose: 4 mg Documented by: Admin: 08/07/19 00:17 Dose: 6 mg Documented by: Admin: 08/06/19 20:37 Dose: 6 mg Documented by: Admin: 08/06/19 17:38 Dose: 6 mg Documented by: Admin: 08/06/19 14:34 Dose: 4 mg Documented by: Admin: 08/06/19 11:03 Dose: 6 mg Documented by: Admin: 08/06/19 05:14 Dose: 4 mg Documented by: Admin: 08/06/19 01:02 Dose: 2 mg Documented by: Admin: 08/05/19 21:04 Dose: 2 mg Documented by: Admin: 08/05/19 19:27 Dose: 2 mg Documented by: Admin: 08/05/19 16:07 Dose: 4 mg Documented by: Admin: 08/05/19 13:12 Dose: 4 mg Documented by: Admin: 08/05/19 09:50 Dose: 4 mg Documented by: CORINNA Ondansetron HCl (Zofran) 4 mg IV Q4HP PRN PRN Reason: Nausea And Vomiting Oxycodone/Acetaminophen (Percocet 10-325mg) 1 - 2 tab PO Q4HP PRN; Protocol PRN Reason: Per Pain Protocol Last Admin: 08/07/19 12:09 Dose: 2 tab Documented by: Admin: 08/07/19 05:57 Dose: 2 tab Documented by: Admin: 08/06/19 22:33 Dose: 2 tab Documented by: Admin: 08/06/19 18:38 Dose: 1 tab Documented by: Admin: 08/06/19 16:21 Dose: 1 tab Documented by: Admin: 08/06/19 12:53 Dose: 1 tab Documented by: [email or web address] Admin: 08/06/19 10:40 Dose: 1 tab Documented by: [email or web address] Admin: 08/06/19 08:49 Dose: 1 tab Documented by: Admin: 08/06/19 06:16 Dose: 1 tab Documented by: Admin: 08/06/19 04:18 Dose: 1 tab Documented by: Admin: 08/06/19 00:15 Dose: 1 tab Documented by: Admin: 08/05/19 21:52 Dose: 1 tab Documented by: Admin: 08/05/19 20:04 Dose: 1 tab Documented by: KATALINA Polyethylene Glycol (Miralax) 17 gm PO DAILYP PRN PRN Reason: Constipation Potassium Chloride (Kdur) 40 meq PO UD PRN PRN Reason: Potssium is 3-3.5 Potassium Chloride (Kdur) 40 meq PO UD PRN PRN Reason: Potassium < 3 Senna (Senokot) 2 tab PO DAILYP PRN PRN Reason: Constipation Sodium Chloride (Saline Flush) 10 ml IV Q8 [facility] Last Admin: 08/07/19 16:03 Dose: Not Given Documented by: [email or web address] Non-Admin Reason: ABX infusing Admin: 08/07/19 05:58 Dose: 10 ml Documented by: Admin: 08/07/19 00:35 Dose: 10 ml Documented by: Admin: 08/06/19 14:35 Dose: 10 ml Documented by: [email or web address] Admin: 08/06/19 05:14 Dose: 10 ml Documented by: Admin: 08/05/19 20:05 Dose: 10 ml Documented by: Admin: 08/05/19 18:30 Dose: 10 ml Documented by: Admin: 08/05/19 16:04 Dose: 10 ml Documented by: Admin: 08/05/19 05:50 Dose: 10 ml Documented by: Admin: 08/04/19 21:10 Dose: 10 ml Documented by: KATALINA Vancomycin HCl (Vancomycin Per Pharmacy) 1 order IV UD [facility] Assessment and Plan - Narrative A/P Narrative: A: 1. Left wrist abscess with flexor tenosynovitis (stage 2 based on Michon Classification Scheme): possible seeding of skin & soft-tissue due to trauma from hand-cuffs (during recent stay at [facility]) - s/p I&D by Dr Phelan on 08/04/19 with 2 x 3 x 2 cm abscess, with involvement of flexor carpi radialis tendon sheath. No operative cultures sent. In absence of cultures and going with epidemiology; likely causative pathogens include: Staphylococcus aureus, Staph lugdunensis, Group B Strept, Group A Strept, Strept angionosus/mitis group, Strept pneumoniae, gram-neg enteric bacteria - blood Cx neg so far. MRSA nasal PCR neg - On IV Vanc and IV Ceftriaxone. Vanc trough 14.4 - no systemic signs/symptoms of infection 2. 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 redness and swelling resolving 3. Prior injection drug use - UDS pending from admission Recommendations: - Stop IV Vanc and IV Ceftriaxone - Pt could be discharged on PO Levofloxacin 750 mg q24 hrs and PO Doxycycline 100 mg bid (stop date of 08/18/19) - ID clinic f/u appt on 08/18/19 Augustine Marcelo MD Infectious diseases
--- NOTE | 2019-08-07 16:45 | Internal Med Progress Note ---
Medical - PN: Subj Patient information: Note initiated : 08/07/19 at 4:42 pm Service Date, if different from initiated Date: [] Patient: Phil Tucker a 34 y/o M admitted on 08/03/19 for swollen left hand. Chief Complaint: [] Interval history: Mr. Tucker is a 34 year old M 34-year-old presents to the ED for increasing redness swelling and pain of his left hand wrist forearm started 3 days ago. Patient states injured initially while being handcuffed in July 07. He states it was just abrasions about 3 days ago and started swelling and becoming red and tender. Has a hard time making a fist or flexing extending his wrist because of the swelling. He complains of fevers chills past several days and headaches. CT of the wrist shows appears to be an abscess. Dr. Keller orthopedic surgery was contacted from the ED who will consult on the patient. Patient will likely need I&D. 08/03 Patient feels as swelling is slightly improved. He has decreased sensation in the hand. But is able to move his fingers a little bit more. Redness appears to be slightly improved. 08/04 States poor sleep last night after the nerve block wore off. Current as needed morphine dose does not seem to be helping much. Otherwise no complaints. 08/05 Pt does not have new complaints. Still has pain from the arm. But denies fever/chills/n/v. As per ID Dr. Marcelo, we will check his insurance to see if IV Oritavancin 1200 mg q weekly inj x 2 weeks would be covered by pt's insurance as outpatient if yes, will plan that otherwise decide PO antibiotic options 08/06 Pt still feels pain, but it seems to improved. Otherwise patient denies fever, chills, nausea, vomiting, or headache. Review of Systems: Headaches and chills . denies fever/nausea/vomiting/chest or abdominal pain/cough/dyspnea/diarrhea. Otherwise see above. - Constitutional Vitals: Vital Signs Temp Pulse Resp BP Pulse Ox 97.7 F 80 16 166/99 98 08/07/19 10:50 08/07/19 10:50 08/07/19 10:50 08/07/19 10:50 08/07/19 10:50 Period Temp Pulse Resp BP Sys/Stevenson Pulse Ox Last 24 Hr 97.6 F-97.9 F 52-80 14-20 123-166/80-99 94-98 Intake and Output 08/07/19 08/07/19 08/07/19 05:59 13:59 21:59 Intake Total 740 1270 500 Balance 740 1270 500 Weight 112.037 kg Patient Weight 08/08/19 05:59 Weight 112.037 kg Intake & Output: Intake & Output 08/07/19 08/07/19 08/07/19 05:59 13:59 21:59 Intake Total 740 1270 500 Balance 740 1270 500 Weight 112.037 kg Intake: IV 500 550 500 Vancomycin 1,500 mg In Sodium 500 500 500 Chloride 0.9% 500 ml @ 333.3 mls/hr IV Q8H [facility] Rx#:[id number] Rocephin 2 gm In Dextrose 5% in 50 Water 50 ml @ 100 mls/hr IV DAILY [facility] Rx#:[id number] Oral 240 720 Other: Meal Lunch Percent of Meal Consumed 100% Feeding Ability Independent Urine Appearance Clear Urine Color Bright Yellow Urine Odor Normal Stool Size Large Stool Color Brown Stool Consistency Soft # Voids 1 1 1 # Bowel Movements 1 - Additional findings Additional findings: General: Alert, Awake, No acute Distress Eyes/N/T: EOMI, Head/Neck: neck supple, CV: RRR, No murmurs, Pulm: Clear b/l, no wheezing/rhonchi/rales Abd: soft, nontender, +BS x4 Ext: no clubbing/cyanosis/edema LEs, Left hand/wrist in dressings, moderate to severe tenderness, needle track domingeuz b/l antecubital space. superficial infection with some skin-soft tissue involvement. redness and swelling resolving. Neuro: Alert, no focal deficits, moves all extremities, Skin: warm/dry Psych: normal mood Medical - PN: Obj Da - Labs CBC & Chem 7: 08/06/19 05:30 08/06/19 05:30 Labs: Abnormal Lab Results 08/06/19 08/06/19 08/05/19 05:30 05:30 09:33 WBC RBC 4.27 L Hgb 11.4 L Hct 34.6 L MCV MPV 11.4 H Gran % Lymph % (Auto) Gran # Lymph # (Auto) Glucose 136 H C-Reactive Protein 5.2 H 08/05/19 09:33 WBC 12.4 H RBC 4.31 L Hgb 11.8 L Hct 34.1 L MCV 79.1 L MPV Gran % 84.2 H Lymph % (Auto) 10.5 L Gran # 10.47 H Lymph # (Auto) 1.30 L Glucose C-Reactive Protein Meds: Medications Diazepam (Valium) 2 mg PO HSP PRN PRN Reason: ANXIETY/SEDATION Last Admin: 08/06/19 22:33 Dose: 2 mg Documented by: Diphenhydramine HCl (Benadryl) 25 mg PO HSP PRN PRN Reason: Insomnia Last Admin: 08/06/19 22:33 Dose: 25 mg Documented by: Docusate Sodium (Colace) 100 mg PO BID [facility] Last Admin: 08/07/19 08:58 Dose: Not Given Documented by: Hydromorphone HCl (Dilaudid) 0.5 mg IV Q1HP PRN; Protocol PRN Reason: Per Pain Protocol Last Admin: 08/06/19 18:45 Dose: 0.5 mg Documented by: Potassium Chloride 40 meq/ (Dextrose) 520 mls @ 130 mls/hr IV UD PRN PRN Reason: Potassium < 3 Magnesium Sulfate (Magnesium Sulfate) 2 gm in 50 mls @ 50 mls/hr IV UD PRN PRN Reason: Magnesium </= 1.6 Vancomycin HCl 1,500 mg/ (Sodium Chloride) 500 mls @ 333.3 mls/hr IV Q8H [facility] Last Infusion: 08/07/19 15:40 Dose: Infused Documented by: Ceftriaxone Sodium 2 gm/ (Dextrose) 50 mls @ 100 mls/hr IV DAILY [facility]; Protocol Last Infusion: 08/07/19 09:50 Dose: Infused Documented by: Lorazepam (Ativan) 0.5 mg IV Q4-6HP PRN PRN Reason: ANXIETY/SEDATION Last Admin: 08/07/19 10:40 Dose: 0.5 mg Documented by: Melatonin (Melatonin 3mg Tablet) 3 mg PO QHS [facility] Last Admin: 08/06/19 22:33 Dose: 3 mg Documented by: Morphine Sulfate (Morphine) 0 mg IV Q3HP PRN PRN Reason: Pain Last Admin: 08/07/19 16:01 Dose: 6 mg Documented by: Ondansetron HCl (Zofran) 4 mg IV Q4HP PRN PRN Reason: Nausea And Vomiting Oxycodone/Acetaminophen (Percocet 10-325mg) 1 - 2 tab PO Q4HP PRN; Protocol PRN Reason: Per Pain Protocol Last Admin: 08/07/19 12:09 Dose: 2 tab Documented by: Polyethylene Glycol (Miralax) 17 gm PO DAILYP PRN PRN Reason: Constipation Potassium Chloride (Kdur) 40 meq PO UD PRN PRN Reason: Potssium is 3-3.5 Potassium Chloride (Kdur) 40 meq PO UD PRN PRN Reason: Potassium < 3 Senna (Senokot) 2 tab PO DAILYP PRN PRN Reason: Constipation Sodium Chloride (Saline Flush) 10 ml IV Q8 [facility] Last Admin: 08/07/19 16:03 Dose: Not Given Documented by: Vancomycin HCl (Vancomycin Per Pharmacy) 1 order IV [facility] [place] Medical - PN: A/P - Time Spent With Patient Total time spent is greater than 50% in coordination of care (as documented) at patient's floor/unit and/or counseling patient: - Narrative A/P Narrative: Assessment: *Left upper extremity cellulitis w/Abscess: s/p I&D (08/05) -h/o MRSA (+) wound cultures in past *SIRS (Tachy/leukocytosis): -improving *h/o substance abuse: denies currently *h/o Anxiety/Depression *2. Chronic non-healing ulcer over left dorsal foot: Plan: -As per ID Dr. Marcelo, can be discharged on PO Levofloxacin 750 mg q24 hrs and PO Doxycycline 100 mg bid (stop date of 08/18/19) -ID clinic f/u appt on 08/18/19 -Dr. Phelan for Ortho following -for the foot ulcer, continue abx above. -serum drug screen negative -ppx: SCD/Ambulation Deposition: Discussed with pt who would like to be discharged tomorrow. Medical - PN: Qual - VTE Deep Vein Thrombosis/Pulmonary Embolism Present on Admission: No
[2019-08-07] MEDS: MELATONIN 3 MG TABLET PO SCH (21:38)
[2019-08-07] MEDS: diphenhydrAMINE 25 MG CAPSULE PO PRN (21:38)
[2019-08-07] MEDS: DIAZEPAM 2 MG TABLET PO PRN (22:31)
[2019-08-08] MEDS: 0.9 % SODIUM CHLORIDE 10 ML SYRINGE IV SCH (04:28)
[2019-08-08] MEDS: oxyCODONE/APAP 10/325MG TABLET PO PRN ×3 (06:00→14:03)
[2019-08-08] MEDS: VANCOMYCIN 1,500 MG in 0.9 % SODIUM CHLORIDE 500 ML IV SCH (06:00)
[2019-08-08] MEDS: LORazepam 2 MG/ML VIAL IV PRN ×3 (06:01→14:05)
--- NOTE | 2019-08-08 09:24 | Discharge Summary ---
Medical - DS: Prov Patient information: Note initiated : 08/08/19 at 9:20 am Service Date, if different from initiated Date: [] Patient: Phil Tucker 34 y/o M admitted on 08/03/19 for swollen left hand. Chief Complaint: [] Refer to HP by Andrea Toledo D.O.> 08/03/19 34-year-old presents to the ED for increasing redness swelling and pain of his left hand wrist forearm started 3 days ago. Patient states injured initially while being handcuffed in July 07. He states it was just abrasions about 3 days ago and started swelling and becoming red and tender. Has a hard time making a fist or flexing extending his wrist because of the swelling. He complains of fevers chills past several days and headaches. CT of the wrist shows appears to be an abscess. Dr. Keller orthopedic surgery was contacted from the ED who will consult on the patient. Patient will likely need I&D. Date of admission: 08/03/19 21:02 Discharge date: 08/08/19 (.) Primary care physician: Jair Rodriguez Consults: 08/03/19 Consult to Physician [CONS] Stat Comment: Consulting Provider: Rasta Phelan Reason For Exam: Physician to Consult Consult to Physician [CONS] Stat Comment: Consulting Provider: Andrea Toledo Reason For Exam: Physician to Consult 08/06/19 09:02 Consult to Physician [CONS] Routine Comment: Consulting Provider: Augustine Marcelo Reason For Exam: Physician to Consult Medical - DS: Meds - Discharge Medications Prescriptions: Levofloxacin [Levaquin] 750 mg PO DAILY #10 tab Transmission Status: Pending to [facility] Doxycycline [Vibramycin] 100 mg PO Q12H #20 tab Transmission Status: Pending to [facility] Active and Home Medications: Home Medications buprenorphine 8 mg-naloxone 2 mg sublingual tablet 8 mg SUBLINGUAL TID tab 10/11/15 [History Confirmed 08/04/19 Last Taken 08/03/19 06:00] Diazepam [Valium] 2 mg PO HS PRN 08/03/19 [History Confirmed 08/04/19 Last Taken 07/31/19 21:00] Medical - DS: Hosp Hospital Course: Assessment: *Left upper extremity cellulitis w/Abscess: s/p I&D (08/04) by DR. Phelan. -h/o MRSA (+) wound cultures in past *SIRS (Tachy/leukocytosis): -resolved *h/o substance abuse: denies currently *h/o Anxiety/Depression *2. Chronic non-healing ulcer over left dorsal foot: Plan: -As per ID Dr. Marcelo, can be discharged on PO Levofloxacin 750 mg q24 hrs and PO Doxycycline 100 mg bid (stop date of 08/18/19) -ID clinic f/u appt on 08/18/19 -f/u with Dr. Phelan in one week -for the foot ulcer, continue abx above. -serum drug screen negative -ppx: SCD/Ambulation Interval history: Mr. Tucker is a 34 year old M 34-year-old presents to the ED for increasing redness swelling and pain of his left hand wrist forearm started 3 days ago. Patient states injured initially while being handcuffed in July 07. He states it was just abrasions about 3 days ago and started swelling and becoming red and tender. Has a hard time making a fist or flexing extending his wrist because of the swelling. He complains of fevers chills past several days and headaches. CT of the wrist shows appears to be an abscess. Dr. Keller orthopedic surgery was contacted from the ED who will consult on the patient. Patient will likely need I&D. 08/03 Patient feels as swelling is slightly improved. He has decreased sensation in the hand. But is able to move his fingers a little bit more. Redness appears to be slightly improved. 08/04 States poor sleep last night after the nerve block wore off. Current as needed morphine dose does not seem to be helping much. Otherwise no complaints. 08/05 Pt does not have new complaints. Still has pain from the arm. But denies fever/chills/n/v. As per ID Dr. Marcelo, we will check his insurance to see if IV Oritavancin 1200 mg q weekly inj x 2 weeks would be covered by pt's insurance as outpatient if yes, will plan that otherwise decide PO antibiotic options 08/06 Pt still feels pain, but it seems to improved. Otherwise patient denies fever, chills, nausea, vomiting, or headache. 08/07 today he is fine. Vital signs are stable. Discussed with ID Dr. Marcelo, he can be discharged on PO Levofloxacin 750 mg q24 hrs and PO Doxycycline 100 mg bid (stop date of 08/18/19). Dr. Rai will see him on 08/18/19. She needs to see Dr. Phelan in one week. He was counseled to stop using drugs and information was given. Call PCP for medical issues. Discharge diagnosis: Left upper extremity cellulitis w/Abscess: s/p I&D - Time Spent with Patient Total time spent providing and/or coordinating discharge services: Greater than 30 minutes Medical - DS: Exam - Constitutional Vitals: Vital Signs Temp Pulse Pulse Resp BP Pulse Ox 08/08/19 07:49 97.4 F 20 136/90 96 08/08/19 04:00 98 F 72 17 135/89 97 08/07/19 23:22 98.8 F 76 16 148/86 97 08/07/19 18:56 98.6 F 86 16 155/98 96 08/07/19 16:00 97.8 F 20 143/88 96 08/07/19 10:50 97.7 F 80 16 166/99 98 Intake and Output 08/07/19 08/08/19 08/08/19 21:59 05:59 13:59 Intake Total 500 740 Balance 500 740 Intake: IV 500 500 Vancomycin 1,500 mg In Sodium 500 500 Chloride 0.9% 500 ml @ 333.3 mls/hr IV Q8H [facility] Rx#:[id number] Oral 240 Other: # Voids 2 1 Weight 110.677 kg - Other Additional findings: General: Alert, Awake, No acute Distress Eyes/N/T: EOMI, Head/Neck: neck supple, CV: RRR, No murmurs, Pulm: Clear b/l, no wheezing/rhonchi/rales Abd: soft, nontender, +BS x4 Ext: no clubbing/cyanosis/edema LEs, Left hand/wrist in dressings, moderate to severe tenderness, needle track dominguez b/l antecubital space. superficial infection with some skin-soft tissue involvement. redness and swelling resolving. Neuro: Alert, no focal deficits, moves all extremities, Skin: warm/dry Psych: normal mood Medical - DS: Data Labs on day of discharge: Labs from last 24 hours 08/07/19 13:13 Vancomycin Trough 15.6 Preliminary micro results at discharge 08/03/19 17:05 Blood Culture - Preliminary Blood 08/03/19 16:37 Blood Culture - Preliminary Blood Medical - DS: A/P - Patient/Caregiver Discharge Instructions Activity: increase activity as tolerated Diet: Regular Diet Additional Instructions: Follow up with Q after discharge. - Follow up Plan Follow up with: Jair Rodriguez MD [Primary Care Provider] - (in 3 days) Rasta Phelan MD [Physician] - (in one week) Disposition: Home, Self-Care Prognosis: Fair Rehab Potential: Good Medical - DS: Qual - VTE Deep Vein Thrombosis/Pulmonary Embolism Present on Admission: No
[2019-08-08] MEDS: DOCUSATE SODIUM 100 MG CAPSULE PO SCH (09:50)
[2019-08-08] MEDS: cefTRIAXone 2 GM in DEXTROSE 5% IN WATER 50 ML IV SCH (10:32)
== END 2019-08-08 14:20 | disposition home or self-care (01) | DRG 501 ==
LOC: ED 15:31 → MEDSUR 21:02
PROVIDERS: ADMIT Internal Medicine; ATTEND Internal Medicine

== ENCOUNTER 2020-03-29 10:22 | Observation (INO) ==
[2020-03-29] MEDS ORDERED: cefTRIAXone 1 GM VIAL IV ONE (11:01)
[2020-03-29] MEDS ORDERED: 0.9 % SODIUM CHLORIDE 1,000 ML IV ONE (11:18)
[2020-03-29] MEDS ORDERED: VANCOMYCIN 1,500 MG in 0.9 % SODIUM CHLORIDE 500 ML IV ONE (11:18)
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
--- NOTE | 2020-03-29 12:07 | XRay Report ---
CLINICAL INFORMATION: severe wounds, edema, redness COMPARISON: None. FINDINGS: No evidence of osteomyelitis. Small exostoses are seen in the first distal phalangeal base. Spurring of the anterior tibial plafond with adjacent spurring the anterior talar neck would predispose to anterior ankle impingement upon ankle dorsiflexion. Mild degenerative change noted in all DIP joints. Mild hammertoe deformities second through fifth digits. There is mild pes planus. Mild diffuse soft tissue swelling in the forefoot midfoot just cellulitis or edema. IMPRESSION: Mild forefoot and midfoot soft tissue swelling suggesting cellulitis or edema. No evidence of osteomyelitis Other chronic findings - as described Interpreted and Authenticated by: Parker Shi 03/29/20
--- NOTE | 2020-03-29 12:10 | XRay Report ---
CLINICAL INFORMATION: severe wounds, edema, redness COMPARISON: None. FINDINGS: There is no evidence of osteomyelitis or other focal osseous abnormality. There may be a cutaneous ulceration over the lateral fifth metatarsal base. Mild forefoot and midfoot soft tissue swelling typically represents either edema or cellulitis. There is mild degenerative change in all interphalangeal joints. Mild hammertoe deformities - second through fifth digits. IMPRESSION: No plain film evidence of osteomyelitis. Mild degenerative change interphalangeal joints Interpreted and Authenticated by: Parker Shi 03/29/20
[2020-03-29 14:07] LABS: Basophils # (Auto) 0.03 K/mcL (0.00-0.20); Basophils % (Auto) 0.5 % (0.0-2.0); Eosinophils # (Auto) 0.15 K/mcL (0.00-0.70); Eosinophils % (Auto) 2.5 % (0.0-7.0); Hematocrit 45.2 % (41.0-55.0); Hemoglobin 14.5 g/dL (13.5-16.5); Lymphocytes # (Auto) 1.29 K/mcL (1.50-4.80); Lymphocytes % (Auto) 21.4 % (15.0-49.0); Mean Cell Volume 81.9 fL (80.0-100.0); Mean Corpuscular HGB Conc 32.1 g/dL (31.0-36.0); Mean Platelet Volume 9.8 fL (7.4-10.4); Monocytes # (Auto) 0.58 K/mcL (0.10-0.90); Monocytes % (Auto) 9.6 % (1.0-12.0); Platelet Count 223 K/mcL (140-440); RBC 5.52 M/mcL (4.50-5.90); Red Cell Distribution Width 12.3 % (11.5-14.5)
[2020-03-29 14:08] LABS: Erythrocyte Sedimentation Rate 16 mm/hr (0-15)
[2020-03-29 14:36] LABS: Estimated Average Glucose(eAG) 126 mg/dL
[2020-03-29 15:15] LABS: ALT/SGPT 16 U/L (<40); AST/SGOT 19 U/L (<40); Albumin 4.1 gm/dL (3.2-5.2); Albumin/Globulin Ratio 1.2 (1.0-2.3); Alkaline Phosphatase 103 U/L (39-117); Bilirubin,Total 0.2 mg/dL (0.1-1.0); Blood Urea Nitrogen 13 mg/dL (6-20); Calcium 9.3 mg/dL (8.6-10.4); Carbon Dioxide 22 mmol/L (22-30); Chloride 101 mmol/L (96-108); Globulin 3.3 gm/dL (2.2-3.7); Glomerular Filtration Rate 110; Glucose 85 mg/dL (70-105)
--- NOTE | 2020-03-29 15:16 | Cat Scan Report ---
CLINICAL INFORMATION: Cutaneous wounds evaluate for cellulitis or abscess. TECHNIQUE: 0.625 helical slices were obtained from the distal one third tibia fibula through the foot and ankle. Following reconstruction, 2.5 m sagittal, coronal and axial reformatted images were processed and reviewed in bone and soft tissue windows. FINDINGS: No evidence of osteomyelitis. 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 It should be considered insignificant. Mild flattening the talar dome. Os trigonum noted - nonfused posterior talar process. Slight metatarsus abductus noted. The joint spaces are normal in width and alignment without arthritic change. There is mild diffuse edema or cellulitis and subcutaneous soft tissues of the foot and ankle IMPRESSION: 1. No evidence of osteomyelitis. 2. Diffuse edema or cellulitis in the subcutaneous fat of the foot and ankle. 3. 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 4. Mild hallux valgus and metatarsus abductus Interpreted and Authenticated by: Parker Shi 03/29/20
--- NOTE | 2020-03-29 15:24 | Cat Scan Report ---
CLINICAL INFORMATION: Cutaneous wounds evaluate for cellulitis or abscess. TECHNIQUE: 0.625 helical slices were obtained from the distal one third tibia fibula through the foot and ankle. Following reconstruction, 2.5 m sagittal, coronal and axial reformatted images were processed and reviewed in bone and soft tissue windows. FINDINGS: No evidence of osteomyelitis. 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 Mild flattening the talar dome. Slight hallux valgus and metatarsus abductus is also noted. The joint spaces are normal in width and alignment without arthritic change. There is mild diffuse edema or cellulitis in the subcutaneous soft tissues of the foot and ankle. Inhomogeneous ulceration over the lateral mid foot appreciated IMPRESSION: 1. No evidence of osteomyelitis. 2. Diffuse edema or cellulitis in the subcutaneous fat of the foot and ankle. 3. 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 4. Mild hallux valgus and metatarsus abductus Interpreted and Authenticated by: Parker Shi 03/29/20
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
[2020-03-29] MEDS ORDERED: ACETAMINOPHEN 325 MG TABLET PO ONE (15:45)
[2020-03-29] MEDS ORDERED: IBUPROFEN 200 MG TABLET PO ONE (15:57)
[2020-03-29] MEDS ORDERED: KETOROLAC 30 MG/ML VIAL IV ONE (16:04)
[2020-03-29 16:29] LABS: Amphetamine Screen,Urine None detected; Barbiturate Screen,Urine None detected; Benzodiazepines Screen,Urine Suspect positive; Cannabinoid Screen,Urine None detected; Cocaine Screen,Urine None detected; Opiate Screen,Urine None detected; Oxycodone, Urine Screen None detected; Phencyclidine Screen,Urine None detected
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
[2020-03-29] MEDS ORDERED: ONDANSETRON 4 MG/2 ML VIAL IV PRN (20:54)
[2020-03-29] MEDS ORDERED: ACETAMINOPHEN 325 MG TABLET PO PRN (20:54)
[2020-03-29] MEDS ORDERED: cefTRIAXone 1 GM in DEXTROSE 5% IN WATER 50 ML IV SCH (20:54)
[2020-03-29] MEDS: SENNOSIDES 1 TABLET PO SCH (22:40)
[2020-03-29] MEDS: DOCUSATE SODIUM 100 MG CAPSULE PO SCH (22:40)
[2020-03-29] MEDS: BUPRENORPHINE NALOXONE SUBLINGUAL SCH (22:40)
[2020-03-29] MEDS: 0.9 % SODIUM CHLORIDE 10 ML SYRINGE IV SCH (22:41)
[2020-03-29] MEDS ORDERED: clonazePAM 1 MG TABLET ONE (23:09)
[2020-03-29] MEDS: VANCOMYCIN 1,000 MG in 0.9 % SODIUM CHLORIDE 250 ML IV SCH (23:09)
[2020-03-29] MEDS: clonazePAM 1 MG TABLET PO SCH (23:10)
[2020-03-29] MEDS: HYDROcodone/APAP 10/325MG TABLET PO PRN (23:10)
[2020-03-29] MEDS: traZODone HCL 50 MG TABLET PO PRN (23:11)
[2020-03-30] MEDS: HYDROcodone/APAP 10/325MG TABLET PO PRN ×5 (03:07→21:06)
[2020-03-30] MEDS: 0.9 % SODIUM CHLORIDE 10 ML SYRINGE IV SCH ×3 (05:48→22:25)
[2020-03-30] MEDS: VANCOMYCIN 1,000 MG in 0.9 % SODIUM CHLORIDE 250 ML IV SCH (06:04)
[2020-03-30 07:47] LABS: Blood Urea Nitrogen 16 mg/dL (6-20); Calcium 8.9 mg/dL (8.6-10.4); Carbon Dioxide 22 mmol/L (22-30); Chloride 106 mmol/L (96-108); Glomerular Filtration Rate 110; Glucose 94 mg/dL (70-105)
[2020-03-30] MEDS: clonazePAM 1 MG TABLET PO SCH ×3 (07:53→21:05)
[2020-03-30] MEDS: DOCUSATE SODIUM 100 MG CAPSULE PO SCH ×2 (07:53→21:05)
[2020-03-30] MEDS: BUPRENORPHINE NALOXONE SUBLINGUAL SCH (08:44)
[2020-03-30] MEDS ORDERED: clonazePAM 1 MG TABLET PO SCH (09:00)
[2020-03-30] MEDS ORDERED: VANCOMYCIN PER PHARMACY IV SCH (09:00)
[2020-03-30] MEDS ORDERED: cefTRIAXone 1 GM VIAL IV SCH (09:00)
[2020-03-30] MEDS: KETOROLAC 15 MG/ML VIAL IV PRN ×2 (10:23→21:06)
[2020-03-30] MEDS ORDERED: HYDROmorphone 0.5 MG/0.5 ML SYRINGE IV PRN (10:59)
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
[2020-03-30] MEDS: HYDROmorphone 0.5 MG/0.5 ML SYRINGE IV PRN ×3 (12:25→21:07)
--- NOTE | 2020-03-30 12:37 | Internal Med Progress Note ---
SUBJECTIVE Subjective Patient information: Note initiated : 03/30/20 at 12:34 pm Service Date, if different from initiated Date: [] Patient: Phil Tucker a 35 y/o M admitted on 03/29/20 for Foot wounds. Chief Complaint: [] Interval history: Mr. Tucker is a 35 year old male with a history of opioid use disorder, recurrent cellulitis, nonhealing wounds presents to the ED for lower extremity wounds that have not healed as expected. His most pressing concern is the left foot wound which has been present for about a week. The other wounds have been present longer, up to about a month. He has had previous issues with nonhealing wounds. These wounds initially developed because of foot sores from his boots. He continued to work in spite of the wounds worsening. The patient denies active substance use, his UDS is positive only for benzodiazepines, he takes clonazepam as a prescription medication. In the ED he does not appear septic, he has been started on antibiotics and admitted for further management. 03/30-plan is for debridement tomorrow, added Dilaudid IV prn, discontinued Vancomycin IV and Ceftriaxone, started Ancef. Constitutional Vitals: Vital Signs Temp Pulse Resp BP Pulse Ox 97.4 F 66 18 126/75 97 03/30/20 08:00 03/30/20 08:00 03/30/20 08:00 03/30/20 08:00 03/30/20 08:00 Period Temp Pulse Resp BP Sys/Stevenson Pulse Ox Last 24 Hr 97.4 F-98.6 F 66-78 13-22 111-174/67-93 95-98 Intake and Output 03/29/20 03/30/20 03/30/20 21:59 05:59 13:59 Intake Total 1500 250 250 Output Total 250 1200 Balance 1250 -950 250 Weight 120.293 kg 120.293 kg Intake & Output: Intake & Output 03/29/20 03/30/20 03/30/20 21:59 05:59 13:59 Intake Total 1500 250 250 Output Total 250 1200 Balance 1250 -950 250 Weight 120.293 kg 120.293 kg Intake: IV 1500 250 250 Sodium Chloride 0.9% 1,000 ml @ 1000 Wide Open IV BOLUS ONE Rx#: [id number] Vancomycin 1,000 mg In Sodium 250 250 Chloride 0.9% 250 ml @ 250 mls/ hr IV Q8H [facility] Rx#:[id number] Vancomycin 1,500 mg In Sodium 500 Chloride 0.9% 500 ml @ 333.3 mls/hr IV ONCE ONE Rx#: [id number] Output: Void Amount 250 1200 Other: Urine Appearance Clear Urine Color Straw Pale Head Head exam: Present atraumatic and normal inspection Eye Eye exam: Present normal appearance ENT ENT exam: Present mucous membranes moist, normal exam and normal external ear exam Neck Neck exam: Present normal inspection Respiratory Respiratory exam: Present normal respiratory exam Cardiovascular Cardiovascular exam: Present normal rate and rhythm GI/Abdominal GI/Abdominal exam: Present normal bowel sounds Back Exam Back exam: Present normal inspection Neurological Exam Neurological exam: Present alert and oriented X3 Skin Skin exam: Present intact and warm OBJ DATA Labs CBC & Chem 7: 03/29/20 11:52 03/30/20 05:35 Labs: Abnormal Lab Results 03/30/20 03/29/20 03/29/20 05:35 14:02 11:53 Lymph # (Auto) ESR Potassium 5.2 H C-Reactive Protein Procalcitonin 0.10 H U Benzodiazepines Scrn Suspect positive A 03/29/20 03/29/20 11:52 11:52 Lymph # (Auto) 1.29 L ESR 16 H Potassium C-Reactive Protein 2.00 H Procalcitonin U Benzodiazepines Scrn Meds: Medications Acetaminophen (Tylenol) 650 mg PO Q4-6HP PRN; Protocol PRN Reason: Per Pain Protocol Hydrocodone Bitart/Acetaminophen ([place] 10/325mg) 1 tab PO Q4-6HP PRN; Protocol PRN Reason: Per Pain Protocol Last Admin: 03/30/20 12:25 Dose: 1 tab Documented by: Ceftriaxone Sodium (Rocephin) 1 gm IV Q24H [facility] Last Admin: 03/30/20 10:20 Dose: 1 gm Documented by: Clonazepam (Klonopin) 1 mg PO BID [facility] Last Admin: 03/30/20 07:53 Dose: 1 mg Documented by: Docusate Sodium (Colace) 100 mg PO BID [facility] Last Admin: 03/30/20 07:53 Dose: 100 mg Documented by: Hydromorphone HCl (Dilaudid) 0.5 mg IV Q4HP PRN; Protocol PRN Reason: Per Pain Protocol Last Admin: 03/30/20 12:25 Dose: 0.5 mg Documented by: Vancomycin HCl 1,000 mg/ (Sodium Chloride) 250 mls @ 250 mls/hr IV Q8H [facility] Last Infusion: 03/30/20 07:04 Dose: Infused Documented by: Ketorolac Tromethamine (Toradol) 15 mg IV Q6HP PRN PRN Reason: Per Pain Protocol Stop: 03/31/20 18:39 Last Admin: 03/30/20 10:23 Dose: 15 mg Documented by: Ondansetron HCl (Zofran) 4 mg IV Q6HP PRN PRN Reason: Nausea And Vomiting Buprenorphine [ (Subutex] 8 Mg Tab) 2.25 dose PO DAILY SUZY Senna (Senokot) 2 tab PO HS [facility] Last Admin: 03/29/20 22:40 Dose: Not Given Documented by: Sodium Chloride (Saline Flush) 10 ml IV Q8 SUZY Last Admin: 03/30/20 05:48 Dose: 10 ml Documented by: Trazodone HCl (Desyrel) 50 mg PO QHS PRN PRN Reason: Sleep Last Admin: 03/29/20 23:11 Dose: 50 mg Documented by: Vancomycin HCl (Vancomycin Per Pharmacy) 1 order IV DAILY [facility]; Protocol A/P Assessment and plan (1) Bilateral lower leg cellulitis: Status: Acute (2) Infected wound: Status: Acute Narrative A/P Narrative: Assessment: 35 year old male with a history of opioid use disorder, recurrent cellulitis and nonhealing wounds presents for evaluation of bilateral lower extremity wounds and cellulitis. #Bilateral lower extremity wounds #Cellulitis Plan: Cellulitis more likely secondary to strep or MSSA-deescalate abx to Cefazolin, discontinued Vancomycin IV and Ceftriaxone, following blood cultures, HIV screen negative, MRSA screen negatiev, BLE arterial duplex pending-likely n egative for PVD, analgesics prn, wound care, wound surgery following. #Opioid use disorder - continue Subutex BID. #Anxiety - continue home Clonazepam. #Insomnia - continue Trazodone. Time Spent With Patient Time: Total time spent is greater than 50% in coordination of care (as documented) at patient's floor/unit and/or counseling patient: QUALITY VTE Deep Vein Thrombosis/Pulmonary Embolism Present on Admission: No
[2020-03-30] MEDS ORDERED: ceFAZolin 2 GM in DEXTROSE 5% IN WATER 50 ML IV SCH (12:45)
[2020-03-30] MEDS ORDERED: BUPRENORPHINE 8 MG PO SCH (13:00)
[2020-03-30] MEDS: ceFAZolin 1 GM VIAL IV SCH ×2 (14:40→22:25)
[2020-03-30] MEDS: BUPRENORPHINE HCL 8 MG PO SCH ×2 (15:15→21:04)
--- NOTE | 2020-03-30 16:18 | Ultrasound Report ---
CLINICAL INFORMATION: Non healing wounds COMPARISON: None. FINDINGS: The attached sheet IMPRESSION: 1. Abdominal aorta is normal diameter and widely patent. 2. Bilateral lower extremity runoff: Both common, external iliac common femoral, superficial femoral, profunda femoral popliteal and trifurcation arteries are widely patent. Interpreted and Authenticated by: Parker Shi 03/30/20
[2020-03-30] MEDS ORDERED: BUPRENORPHINE HCL 8 MG PO SCH (21:00)
[2020-03-30] MEDS: traZODone HCL 50 MG TABLET PO PRN (21:05)
[2020-03-30] MEDS: SENNOSIDES 1 TABLET PO SCH (21:05)
[2020-03-31] MEDS: HYDROcodone/APAP 10/325MG TABLET PO PRN ×3 (02:56→15:03)
[2020-03-31] MEDS: HYDROmorphone 0.5 MG/0.5 ML SYRINGE IV PRN ×4 (02:56→15:03)
[2020-03-31] MEDS: ceFAZolin 1 GM VIAL IV SCH ×2 (06:12→15:07)
[2020-03-31] MEDS: 0.9 % SODIUM CHLORIDE 10 ML SYRINGE IV SCH ×2 (06:12→15:08)
[2020-03-31 07:41] LABS: Blood Urea Nitrogen 18 mg/dL (6-20); Calcium 8.8 mg/dL (8.6-10.4); Carbon Dioxide 24 mmol/L (22-30); Chloride 105 mmol/L (96-108); Glomerular Filtration Rate 116; Glucose 108 mg/dL (70-105)
[2020-03-31] MEDS ORDERED: LIDOCAINE 2% 20 ML VIAL SQ ONE (08:15)
[2020-03-31] MEDS ORDERED: BUPRENORPHINE HCL SUBLINGUAL SCH (09:00)
[2020-03-31 09:15] LABS: Eosinophils % (Manual) 4 % (0-7); Hematocrit 41.2 % (41.0-55.0); Hemoglobin 13.7 g/dL (13.5-16.5); Lymphocytes % 36 % (15-49); Mean Cell Volume 79.4 fL (80.0-100.0); Mean Corpuscular HGB Conc 33.3 g/dL (31.0-36.0); Mean Platelet Volume 10.4 fL (7.4-10.4); Monocytes % (Manual) 10 % (1-12); Platelet Count 184 K/mcL (140-440); Platelet Estimate NORMAL (Normal); RBC 5.19 M/mcL (4.50-5.90); RBC Morphology NORMAL (Normal); Red Cell Distribution Width 12.6 % (11.5-14.5); Segmented Neutrophils % 50 % (38-78); WBC 5.3 K/mcL (4.5-11.0)
[2020-03-31] MEDS: BUPRENORPHINE HCL 8 MG PO SCH (10:37)
[2020-03-31] MEDS: clonazePAM 1 MG TABLET PO SCH ×2 (10:37→16:31)
[2020-03-31] MEDS: MUPIROCIN OINT 2% 22GM TOPICAL SCH ×2 (10:38→15:26)
[2020-03-31] MEDS: DOCUSATE SODIUM 100 MG CAPSULE PO SCH ×2 (10:38→10:47)
--- NOTE | 2020-03-31 11:28 | General Surgery Progress Note ---
SUBJECTIVE Subjective Patient information: Note initiated : 03/31/20 at 11:19 am Service Date, if different from initiated Date: [] Patient: Phil Tucker 35 y/o M admitted on 03/29/20 for Foot wounds. 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 He had an uneventful night. Tolerating local wound care and IV antibiotics. . Decrease in pain and throbbing of lower legs. Full weight bearing and ambulating. Constitutional Vitals: Vital Signs Temp Pulse Resp BP Pulse Ox 97.4 F 81 16 134/78 99 03/31/20 08:00 03/31/20 08:00 03/31/20 08:00 03/31/20 08:00 03/31/20 08:00 Period Temp Pulse Resp BP Sys/Stevenson Pulse Ox Last 24 Hr 97.1 F-98.1 F 65-81 - 119-134/69-80 94-99 Intake and Output 03/30/20 03/31/20 03/31/20 21:59 05:59 13:59 Intake Total 900 150 Balance 900 150 Weight 265 lb 3.2 oz Intake & Output: Intake & Output 03/30/20 03/31/20 03/31/20 21:59 05:59 13:59 Intake Total 900 150 Balance 900 150 Weight 265 lb 3.2 oz Intake: Oral 900 150 Other: Meal Dinner Percent of Meal Consumed 100% Feeding Ability Independent Urine Appearance Clear Urine Color Pale # Voids 1 Exam: AVSS. No changes GENESIS. O/E Significant improvement in cellulitis and dermatitis of both lower legs. Decreased, Erythema, pain, swelling and NO warmth over wound beds of Right lower lateral leg and LEFT lower anterior leg and medial mid foot . Demarcating and slough. A/P Narrative A/P Narrative: Assessment: Satisfactory progress with resolving CSSSI both lower legs. and LEFT foot. Plan: Bedside local wound debridement and tissue for c/s. Consider D/C home on PO antibiotics and f/u at wound care center 04/04/2020 0r 2019 Discussed with patient about plan of treatment as out patient. He agrees and is keen to go home. Time Spent With Patient Time: Total time spent is greater than 50% in coordination of care (as documented) at patient's floor/unit and/or counseling patient: Total time spent with greater than 50% in coordination of care (as documented) at patient's floor/unit and/or counseling patient:: 15 - 24 minutes
--- NOTE | 2020-03-31 11:31 | Brief Operative Note ---
Brief Operative Note Date of procedure: 03/31/20 Pre-op diagnosis: Resolving CSSI. Open wounds Right and left legs and Left foot Post-op diagnosis: same Procedure: Bed side Selective debridement and tissue for c/s. Grafts/Implants: No Anesthesia: none Findings: Wound dimension LEFT leg Stage3 ulcer up to dermis 7 x 2 x 0.5 CM, LEFT mid medial foot 2 x 1 x 0.5 CM Stage 3 up to dermis RIGHT lower lateral leg 3 x 2.5 X 1 CM Complications: none Surgeon: Akira Vergara Estimated blood loss (cc): 2 Specimens Removed/Pathology: other (Tissue Left and Right leg wounds for c/s. Aerobic and Anaerobic. ) Condition: stable Disposition: floor
--- NOTE | 2020-03-31 13:16 | Internal Med Progress Note ---
SUBJECTIVE Subjective Patient information: Note initiated : 03/31/20 at 1:14 pm Service Date, if different from initiated Date: [] Patient: Phil Tucker a 35 y/o M admitted on 03/29/20 for Foot wounds. Chief Complaint: [] Interval history: Mr. Tucker is a 35 year old male with a history of opioid use disorder, recurrent cellulitis, nonhealing wounds presents to the ED for lower extremity wounds that have not healed as expected. His most pressing concern is the left foot wound which has been present for about a week. The other wounds have been present longer, up to about a month. He has had previous issues with nonhealing wounds. These wounds initially developed because of foot sores from his boots. He continued to work in spite of the wounds worsening. The patient denies active substance use, his UDS is positive only for benzodiazepines, he takes clonazepam as a prescription medication. In the ED he does not appear septic, he has been started on antibiotics and admitted for further management. 03/30-plan is for debridement tomorrow, added Dilaudid IV prn, discontinued Vancomycin IV and Ceftriaxone, started Ancef. 03/31-debridement today, added norco, still requiring IV dilaudid prn. Constitutional Vitals: Vital Signs Temp Pulse Resp BP Pulse Ox 97.4 F 81 16 134/78 99 03/31/20 08:00 03/31/20 08:00 03/31/20 08:00 03/31/20 08:00 03/31/20 08:00 Period Temp Pulse Resp BP Sys/Stevenson Pulse Ox Last 24 Hr 97.1 F-98.1 F 65-81 - 119-134/69-79 94-99 Intake and Output 03/30/20 03/31/20 03/31/20 21:59 05:59 13:59 Intake Total 900 150 Balance 900 150 Weight 120.293 kg Intake & Output: Intake & Output 03/30/20 03/31/20 03/31/20 21:59 05:59 13:59 Intake Total 900 150 Balance 900 150 Weight 120.293 kg Intake: Oral 900 150 Other: Meal Dinner Percent of Meal Consumed 100% Feeding Ability Independent Urine Appearance Clear Urine Color Pale # Voids 1 Head Head exam: Present atraumatic and normal inspection Eye Eye exam: Present normal appearance ENT ENT exam: Present mucous membranes moist, normal exam and normal external ear exam Neck Neck exam: Present normal inspection Respiratory Respiratory exam: Present normal respiratory exam Cardiovascular Cardiovascular exam: Present normal rate and rhythm GI/Abdominal GI/Abdominal exam: Present normal bowel sounds Extremities Exam Additional comments: bilateral lower extremity wound in clean bandages Back Exam Back exam: Present normal inspection Neurological Exam Neurological exam: Present alert and oriented X3 Skin Skin exam: Present intact and warm OBJ DATA Labs CBC & Chem 7: 03/31/20 06:14 03/31/20 06:14 Labs: Abnormal Lab Results 03/31/20 03/31/20 03/30/20 06:14 06:14 05:35 MCV 79.4 L Lymph # (Auto) ESR Potassium 5.2 H Glucose 108 H C-Reactive Protein Procalcitonin U Benzodiazepines Scrn 03/29/20 03/29/20 03/29/20 14:02 11:53 11:52 MCV Lymph # (Auto) ESR Potassium Glucose C-Reactive Protein 2.00 H Procalcitonin 0.10 H U Benzodiazepines Scrn Suspect positive A 03/29/20 11:52 MCV Lymph # (Auto) 1.29 L ESR 16 H Potassium Glucose C-Reactive Protein Procalcitonin U Benzodiazepines Scrn Meds: Medications Acetaminophen (Tylenol) 650 mg PO Q4-6HP PRN; Protocol PRN Reason: Per Pain Protocol Hydrocodone Bitart/Acetaminophen ([place] 10/325mg) 1 tab PO Q4-6HP PRN; Protocol PRN Reason: Per Pain Protocol Last Admin: 03/31/20 07:07 Dose: 1 tab Documented by: Cefazolin Sodium (Ancef) 2 gm IV Q8H [facility] Last Admin: 03/31/20 06:12 Dose: 2 gm Documented by: Clonazepam (Klonopin) 1 mg PO BID [facility] Last Admin: 03/31/20 10:37 Dose: 1 mg Documented by: Docusate Sodium (Colace) 100 mg PO BID [facility] Last Admin: 03/31/20 10:47 Dose: 100 mg Documented by: Hydromorphone HCl (Dilaudid) 1 mg IV Q4HP PRN; Protocol PRN Reason: Per Pain Protocol Last Admin: 03/31/20 10:48 Dose: 1 mg Documented by: Ketorolac Tromethamine (Toradol) 15 mg IV Q6HP PRN PRN Reason: Per Pain Protocol Stop: 03/31/20 18:39 Last Admin: 03/30/20 21:06 Dose: 15 mg Documented by: Mupirocin (Bactroban Oint 2%) 1 dose TOPICAL TID [facility] Last Admin: 03/31/20 10:38 Dose: 1 dose Documented by: Buprenorphine Hcl 8 (Mg Tab) 0 - 8 mg PO BID [facility] Last Admin: 03/31/20 10:37 Dose: 1 mg Documented by: Ondansetron HCl (Zofran) 4 mg IV Q6HP PRN PRN Reason: Nausea And Vomiting Senna (Senokot) 2 tab PO HS [facility] Last Admin: 03/30/20 21:05 Dose: 2 tab Documented by: Sodium Chloride (Saline Flush) 10 ml IV Q8 [facility] Last Admin: 03/31/20 06:12 Dose: 10 ml Documented by: Trazodone HCl (Desyrel) 50 mg PO QHS PRN PRN Reason: Sleep Last Admin: 03/30/20 21:05 Dose: 50 mg Documented by: A/P Narrative A/P Narrative: Assessment: 35 year old male with a history of opioid use disorder, recurrent cellulitis and nonhealing wounds presents for evaluation of bilateral lower extremity wounds and cellulitis. #Bilateral lower extremity wounds #Cellulitis Plan: Cefazolin for cellulitis, could probable transition to oral abx soon, discontinued Vancomycin IV and Ceftriaxone, following blood cultures-NGTD, HIV screen negative, MRSA screen negative, BLE arterial duplex-widely patent LE arteries, analgesics prn, wound care, wound surgery following. #Opioid use disorder - continue Subutex BID. #Anxiety - continue home Clonazepam. #Insomnia - continue Trazodone. Time Spent With Patient Time: Total time spent is greater than 50% in coordination of care (as documented) at patient's floor/unit and/or counseling patient: Total time spent with greater than 50% in coordination of care (as documented) at patient's floor/unit and/or counseling patient:: 15 - 24 minutes QUALITY VTE Deep Vein Thrombosis/Pulmonary Embolism Present on Admission: No
--- NOTE | 2020-03-31 14:04 | Internal Med Progress Note ---
SUBJECTIVE Subjective Patient information: Note initiated : 03/31/20 at 2:00 pm Service Date, if different from initiated Date: [] Patient: Phil Tucker a 35 y/o M admitted on 03/29/20 for Foot wounds. Chief Complaint: [] Interval history: Mr. Tucker is a 35 year old male with a history of opioid use disorder, recurrent cellulitis, nonhealing wounds presents to the ED for lower extremity wounds that have not healed as expected. His most pressing concern is the left foot wound which has been present for about a week. The other wounds have been present longer, up to about a month. He has had previous issues with nonhealing wounds. These wounds initially developed because of foot sores from his boots. He continued to work in spite of the wounds worsening. The patient denies active substance use, his UDS is positive only for benzodiazepines, he takes clonazepam as a prescription medication. In the ED he does not appear septic, he has been started on antibiotics and admitted for further management. 03/30-plan is for debridement tomorrow, added Dilaudid IV prn, discontinued Vancomycin IV and Ceftriaxone, started Ancef. 03/31-debridement today, added norco, still requiring IV dilaudid prn. 04/01 Constitutional Vitals: Vital Signs Temp Pulse Resp BP Pulse Ox 97.4 F 81 16 134/78 99 03/31/20 08:00 03/31/20 08:00 03/31/20 08:00 03/31/20 08:00 03/31/20 08:00 Period Temp Pulse Resp BP Sys/Stevenson Pulse Ox Last 24 Hr 97.1 F-98.1 F 65-81 - 119-134/69-79 94-99 Intake and Output 03/31/20 03/31/20 03/31/20 05:59 13:59 21:59 Intake Total 150 Balance 150 Intake & Output: Intake & Output 03/31/20 03/31/20 03/31/20 05:59 13:59 21:59 Intake Total 150 Balance 150 Intake: Oral 150 Other: # Voids 1 Exam: General: Alert, Awake, No acute Distress Eyes/N/T: EOMI, Head/Neck: neck supple, CV: RRR, No murmurs, Pulm: Clear b/l, no wheezing/rhonchi/rales Abd: soft, nontender, +BS x4 Ext: no clubbing/cyanosis, b/l LE wounds, Neuro: Alert, no focal deficits, moves all extremities, Skin: warm/dry OBJ DATA Labs CBC & Chem 7: 03/31/20 06:14 03/31/20 06:14 Labs: Abnormal Lab Results 03/31/20 03/31/20 03/30/20 06:14 06:14 05:35 MCV 79.4 L Lymph # (Auto) ESR Potassium 5.2 H Glucose 108 H C-Reactive Protein Procalcitonin U Benzodiazepines Scrn 03/29/20 03/29/20 03/29/20 14:02 11:53 11:52 MCV Lymph # (Auto) ESR Potassium Glucose C-Reactive Protein 2.00 H Procalcitonin 0.10 H U Benzodiazepines Scrn Suspect positive A 03/29/20 11:52 MCV Lymph # (Auto) 1.29 L ESR 16 H Potassium Glucose C-Reactive Protein Procalcitonin U Benzodiazepines Scrn Meds: Medications Acetaminophen (Tylenol) 650 mg PO Q4-6HP PRN; Protocol PRN Reason: Per Pain Protocol Hydrocodone Bitart/Acetaminophen ([place] 10/325mg) 1 tab PO Q4-6HP PRN; Protocol PRN Reason: Per Pain Protocol Last Admin: 03/31/20 07:07 Dose: 1 tab Documented by: Cefazolin Sodium (Ancef) 2 gm IV Q8H [facility] Last Admin: 03/31/20 06:12 Dose: 2 gm Documented by: Clonazepam (Klonopin) 1 mg PO BID [facility] Last Admin: 03/31/20 10:37 Dose: 1 mg Documented by: Docusate Sodium (Colace) 100 mg PO BID [facility] Last Admin: 03/31/20 10:47 Dose: 100 mg Documented by: Hydromorphone HCl (Dilaudid) 1 mg IV Q4HP PRN; Protocol PRN Reason: Per Pain Protocol Last Admin: 03/31/20 10:48 Dose: 1 mg Documented by: Ketorolac Tromethamine (Toradol) 15 mg IV Q6HP PRN PRN Reason: Per Pain Protocol Stop: 03/31/20 18:39 Last Admin: 03/30/20 21:06 Dose: 15 mg Documented by: Mupirocin (Bactroban Oint 2%) 1 dose TOPICAL TID [facility] Last Admin: 03/31/20 10:38 Dose: 1 dose Documented by: Buprenorphine Hcl 8 (Mg Tab) 0 - 8 mg PO BID [facility] Last Admin: 03/31/20 10:37 Dose: 1 mg Documented by: Ondansetron HCl (Zofran) 4 mg IV Q6HP PRN PRN Reason: Nausea And Vomiting Senna (Senokot) 2 tab PO HS [facility] Last Admin: 03/30/20 21:05 Dose: 2 tab Documented by: Sodium Chloride (Saline Flush) 10 ml IV Q8 [facility] Last Admin: 03/31/20 06:12 Dose: 10 ml Documented by: Trazodone HCl (Desyrel) 50 mg PO QHS PRN PRN Reason: Sleep Last Admin: 03/30/20 21:05 Dose: 50 mg Documented by: A/P Narrative A/P Narrative: A: *b/l LE wounds with Cellulitis: -BLE arterial duplex-widely patent LE arteries, #Opioid use disorder, on Subutex BID. #Anxiety: home Clonazepam. #Insomnia: home Trazodone. Plan: - Cefazolin for cellulitis, could probable transition to oral abx soon, discontinued Vancomycin IV and Ceftriaxone -following blood cultures-NGTD, HIV screen negative, MRSA screen negative -Dr. Vergara/wound care, -cont home Subutex BID. -ppx: lovenox Time Spent With Patient Time: Total time spent is greater than 50% in coordination of care (as documented) at patient's floor/unit and/or counseling patient: QUALITY VTE Deep Vein Thrombosis/Pulmonary Embolism Present on Admission: No
--- NOTE | 2020-03-31 15:14 | Discharge Summary ---
Discharge Provider Provider Patient information: Note initiated : 03/31/20 at 3:13 pm Service Date, if different from initiated Date: [] Patient: Phil Tucker 35 y/o M admitted on 03/29/20 for Foot wounds. Chief Complaint: [] Date of admission: 03/29/20 20:48 Discharge date: 03/31/20 Primary care physician: PCP No Consults: 03/29/20 Consult to Physician [CONS] Stat Comment: Consulting Provider: Manuel Fagan Reason For Exam: Physician to Consult Consult to Physician [CONS] Stat Comment: Evaluate wounds and recommend treatment Consulting Provider: Akira Vergara Reason For Exam: Physician to Consult Discharge Meds Discharge Medications Home Medications clonazepam 1 mg tablet 1 mg PO BID 11/05/19 [History Confirmed 03/30/20 Last Taken 03/29/20] trazodone 50 mg tablet 50 mg PO QHS PRN 11/05/19 [History Confirmed 03/30/20 Last Taken 03/28/20] buprenorphine HCl 18 mg SUBLINGUAL QDAY 03/30/20 [History Confirmed 03/30/20 Last Taken Unknown] cephalexin 500 mg PO QID #26 cap 03/31/20 [Rx Last Taken Unknown] oxycodone-acetaminophen [Percocet] 1 tab PO Q6H PRN #20 tab 03/31/20 [Rx Last Taken Unknown] COURSE Hospital Course Hospital course: Interval history: Mr. Tucker is a 35 year old male with a history of opioid use disorder, recurrent cellulitis, nonhealing wounds presents to the ED for lower extremity wounds that have not healed as expected. His most pressing concern is the left foot wound which has been present for about a week. The other wounds have been present longer, up to about a month. He has had previous issues with nonhealing wounds. These wounds initially developed because of foot sores from his boots. He continued to work in spite of the wounds worsening. The patient denies active substance use, his UDS is positive only for benzodiazepines, he takes clonazepam as a prescription medication. In the ED he does not appear septic, he has been started on antibiotics and admitted for further management. 03/30-plan is for debridement tomorrow, added Dilaudid IV prn, discontinued Vancomycin IV and Ceftriaxone, started Ancef. 03/31-debridement today, added norco, still requiring IV dilaudid prn. A: *b/l LE wounds with Cellulitis: -BLE arterial duplex-widely patent LE arteries, #Opioid use disorder, on Subutex BID. #Anxiety: home Clonazepam. #Insomnia: home Trazodone. Discharge diagnosis: Leg cellulitis Secondary discharge diagnosis: Opioid use disorder anxiety insomnia Time Spent with Patient Time attestation: Total time spent providing and/or coordinating discharge services: Time spent: Greater than 30 minutes EXAM Constitutional Vitals: Temp Pulse Resp BP Pulse Ox 97.5 F 85 16 129/72 98 03/31/20 12:00 03/31/20 12:00 03/31/20 12:00 03/31/20 12:00 03/31/20 12:00 Discharge Data Data Completed and Pending Labs on day of discharge: Labs from last 24 hours 03/31/20 03/31/20 06:14 06:14 WBC 5.3 RBC 5.19 Hgb 13.7 Hct 41.2 MCV 79.4 L MCH 26.4 MCHC 33.3 RDW 12.6 Plt Count 184 MPV 10.4 Seg Neutrophils % 50 Lymphocytes % 36 Monocytes % (Manual) 10 Eosinophils % (Manual) 4 Platelet Estimate Normal RBC Morphology Normal Sodium 141 Potassium 4.8 Chloride 105 Carbon Dioxide 24 Anion Gap 12.0 BUN 18 Creatinine 0.8 GFR Calculation 116 Glucose 108 H Calcium 8.8 Preliminary micro results at discharge 03/29/20 12:19 Gram Stain - Preliminary Foot - Right Wound Culture - Preliminary Pseudomonas aeruginosa 03/29/20 12:19 Gram Stain - Preliminary Foot - Left Wound Culture - Preliminary Gram negative bacillus Gram negative bacillus#2 Beta strep 03/29/20 23:34 Blood Culture - Preliminary Blood 03/29/20 23:23 Blood Culture - Preliminary Blood Discharge Plan Patient/Caregiver Discharge Instructions Activity: increase activity as tolerated Diet: Regular Diet Prescriptions: New oxycodone-acetaminophen [Percocet] 10-325 mg tablet 1 tab PO Q6H PRN (Reason: pain) Qty: 20 RF: 0 cephalexin 500 mg capsule 500 mg PO QID Qty: 26 RF: 0 Continued clonazepam 1 mg tablet 1 mg PO BID RF: 0 trazodone 50 mg tablet 50 mg PO QHS PRN (Reason: Sleep) RF: 0 buprenorphine HCl 8 mg Tablet, Sublingual 18 mg SUBLINGUAL QDAY RF: 0 Follow Up Plan Follow up with: No,PCP [Primary Care Provider] - Akira Vergara MD [Physician] - Patient Disposition: Home, Self-Care Prognosis: Fair Discharge Orders: Discharge Order (Routine); Ordered 03/31/20 Ordered By: [facility] VTE Deep Vein Thrombosis/Pulmonary Embolism Present on Admission: No
--- NOTE | 2020-03-31 16:02 | Operative Note ---
DATE OF OPERATION: 03/31/2020 PREOPERATIVE DIAGNOSES: Resolving complicated skin structure soft tissue infection, open wounds of the right and left lower legs and left medial foot. POSTOPERATIVE DIAGNOSES: Resolving complicated skin structure soft tissue infection, open wounds of the right and left lower legs and left medial foot. OPERATION: Selective debridement and tissue for culture and sensitivities. SURGEON: Akira Vergara M.D. ANESTHESIA: None. Topical LMX gel was used. FINDINGS: 1. Left leg stage 3 ulcer with a depth up to dermis, dimensions 7 x 2 x 0.5 cm. 2. Left mid medial foot, 2 x 1 x 0.5 cm, stage 3, depth up to dermis. 3. Right lower lateral leg ulcer, dimensions 3 x 2.5 x 1 cm, depth up to dermis and synovial tissue. These ulcers and wounds correspond to the areas of the shoes the patient has been wearing and the blisters he has had in these locations. PROCEDURE NOTE IN DETAIL: After explanation of the procedure and obtaining verbal consent, I proceeded to debride these wounds at the bedside with help of nursing staff. Using chlorhexidine solution, the skin of the lower legs, feet, and ankle was cleaned, prepped, and draped in the standard fashion. The ulcers were pretreated with LMX anesthetizing gel. Using #7 ring curette, sharp debridement was carried out tangentially from the margin towards the center. The superficial slough was debrided and deep tissue was curetted and obtained separately for cultures and sensitivities. Size Marker samples were obtained from the left lower leg and right lower lateral leg. Hemostasis was achieved with pressure. Dressings consisted of Bactroban ointment and Mepilex border foam reinforced with Kerlix and Ramo bandages, respectively. We will await results of the tissue cultures. At this time, patient has responded well to intravenous antibiotics, vancomycin and Rocephin. He can be empirically treated at this point with linezolid/Zyvox 600 mg q.12 hours for 15 days. Upon discharge, he needs to be seen for followup at the wound care center in one week. VD:elana Job ID: [id number] Doc ID: [id number] Akira Vergara MD [facility]ITAL[facility]iss[facility]
[2020-04-01] MEDS ORDERED: ENOXAPARIN 40 MG/0.4 ML SYRINGE SQ SCH (09:00)
== END 2020-03-31 17:20 | disposition home or self-care (01) ==
LOC: ED 10:22 → INTOOBSV 20:48 → MEDSUR 20:48
PROVIDERS: ADMIT Internal Medicine; ATTEND Internal Medicine

== ENCOUNTER 2022-04-02 16:02 | Inpatient (IN) ==
[2022-04-02] MEDS ORDERED: IOPAMIDOL 100 ML BOTTLE IV ONE (16:03)
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
[2022-04-02 18:11] LABS: Basophils # (Auto) 0.02 K/mcL (0.00-0.30); Basophils % (Auto) 0.1 % (0.0-2.0); Eosinophils # (Auto) 0.01 K/mcL (0.00-0.70); Eosinophils % (Auto) 0.1 % (0.0-7.0); Hematocrit 37.9 % (40.1-51.0); Hemoglobin 12.5 g/dL (13.7-17.5); Lymphocytes # (Auto) 0.88 K/mcL (1.50-4.80); Lymphocytes % (Auto) 6.3 % (15.5-49.0); Mean Platelet Volume 10.4 fL (8.8-12.5); Monocytes # (Auto) 0.68 K/mcL (0.10-0.90); Monocytes % (Auto) 4.8 % (1.0-12.0); Neutrophils % (Auto) 88.1 % (38.0-78.0); Platelet Count 225 K/mcL (140-440); RBC 4.51 M/mcL (4.63-6.08); Red Cell Distribution Width 12.5 % (11.5-14.5); WBC 14.1 K/mcL (4.5-11.0)
[2022-04-02 18:32] LABS: ALT/SGPT 38 U/L (<40); AST/SGOT 54 U/L (<40); Albumin 3.3 gm/dL (3.2-5.2); Albumin/Globulin Ratio 0.9 (1.0-2.3); Alkaline Phosphatase 81 U/L (39-117); Bilirubin,Total 0.2 mg/dL (0.1-1.0); Blood Urea Nitrogen 13 mg/dL (6-20); Calcium 8.8 mg/dL (8.6-10.4); Carbon Dioxide 30 mmol/L (22-30); Chloride 92 mmol/L (96-108); Globulin 3.8 gm/dL (2.2-3.7); Glomerular Filtration Rate 109; Glucose 106 mg/dL (70-105)
[2022-04-02] MEDS ORDERED: KETOROLAC 60 MG/2 ML VIAL IM ONE (19:07)
[2022-04-02] MEDS ORDERED: ACETAMINOPHEN 325 MG TABLET PO ONE (19:08)
[2022-04-02] MEDS ORDERED: VANCOMYCIN 1,500 MG in 0.9 % SODIUM CHLORIDE 500 ML IV ONE (20:28)
[2022-04-02] MEDS ORDERED: cefTRIAXone 1 GM VIAL IV ONE (20:28)
[2022-04-02] MEDS ORDERED: LACTATED RINGERS 1,000 ML IV ONE (20:41)
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
[2022-04-02 22:10] LABS: Erythrocyte Sedimentation Rate 106 mm/hr (0-15)
--- NOTE | 2022-04-02 22:58 | Emergency Department Note ---
Course Vital Signs Vital signs: Vital Signs Temperature 98.0 F 04/02/22 16:09 Pulse Rate 105 H 04/02/22 16:09 Respiratory Rate 20 04/02/22 16:09 Blood Pressure 138/87 04/02/22 16:09 Pulse Oximetry (%) 99 04/02/22 16:09 Oxygen Delivery Method 04/02/22 16:09 Temperature 98.0 F 04/03/22 00:24 Pulse Rate 101 H 04/03/22 00:24 Respiratory Rate 16 04/03/22 00:24 Blood Pressure 139/79 04/03/22 00:24 Pulse Oximetry (%) 100 04/03/22 00:24 Oxygen Delivery Method 04/03/22 00:19 Procedures CVP Indication: Venous access Location: IJ Right / Left: Right Preparation: Sterile field and Chlorhexidine Anesthesia: Lidocaine Amount: 2 Post Procedure: Adequate blood return, Adequate fluid flow and Equal bilateral breath sounds Patient Tolerated: Well Complications: None Time: 2100 Other: confirmed on US and CXR MDM MDM Narrative Medical decision making narrative: Narrative: Patient seen by physician dental assistant nursing staff was having difficult time placing IV or midline after several attempts. Patient will need IV antibiotics so a central line was placed. Lab Data Result diagrams: 04/02/22 17:20 04/02/22 17:20 Labs: Lab Results 04/02/22 04/02/22 04/02/22 Range/Units 16:18 16:18 16:18 WBC (4.5-11.0) K/mcL RBC (4.63-6.08) M/mcL Hgb (13.7-17.5) g/dL Hct (40.1-51.0) % MCV (80.0-100.0) fL MCH (26.0-34.0) pg MCHC (31.0-36.0) g/dL RDW (11.5-14.5) % Plt Count (140-440) K/mcL MPV (8.8-12.5) fL Immature Gran % (Auto) (0.0-0.5) % Neut % (Auto) (38.0-78.0) % Lymph % (Auto) (15.5-49.0) % [place] % (Auto) (1.0-12.0) % Eos % (Auto) (0.0-7.0) % Baso % (Auto) (0.0-2.0) % Lymph # (Auto) (1.50-4.80) K/mcL [place] # (Auto) (0.10-0.90) K/mcL Eos # (Auto) (0.00-0.70) K/mcL Baso # (Auto) (0.00-0.30) K/mcL Seg Neutrophils % 72 (38-78) % Band Neutrophils % 17 H (0-10) % Lymphocytes % 8 L (15-49) % Monocytes % (Manual) 2 (1-12) % Eosinophils % (Manual) 1 (0-7) % Immature Gran # (0.00-0.05) K/mcl Absolute Neutrophils (1.80-8.00) K/mcL Platelet Estimate Normal (Normal) RBC Morphology Normal (Normal) ESR 106 H (0-15) mm/hr POC VBG pH (7.32-7.42) POC VBG pCO2 at Temp (41-51) POC VBG pO2 (25-40) POC VBG HCO3 (24-28) POC VBG Total CO2 (25-29) POC Venous O2 Sat (40-70) POC VBG Base Excess (-2-2) VBG Lactic Acid (0.5-2) Sodium (133-145) mmol/L Potassium (3.3-5.1) mmol/L Chloride (96-108) mmol/L Carbon Dioxide (22-30) mmol/L Anion Gap (8.0-16.0) BUN (6-20) mg/dL Creatinine (0.7-1.2) mg/dL GFR Calculation Glucose (70-105) mg/dL Calcium (8.6-10.4) mg/dL Total Bilirubin (0.1-1.0) mg/dL AST (<40) U/L ALT (<40) U/L Alkaline Phosphatase (39-117) U/L Total Creatine Kinase 1185 H (24-195) U/L C-Reactive Protein (0.03-0.80) mg/dL Total Protein (5.9-8.4) gm/dL Albumin (3.2-5.2) gm/dL Globulin (2.2-3.7) gm/dL Albumin/Globulin Ratio (1.0-2.3) Procalcitonin 6.15 H (<0.10) ng/mL 04/02/22 04/02/22 04/02/22 Range/Units 17:20 17:20 17:20 WBC 14.1 H (4.5-11.0) K/mcL RBC 4.51 L (4.63-6.08) M/mcL Hgb 12.5 L (13.7-17.5) g/dL Hct 37.9 L (40.1-51.0) % MCV 84.0 (80.0-100.0) fL MCH 27.7 (26.0-34.0) pg MCHC 33.0 (31.0-36.0) g/dL RDW 12.5 (11.5-14.5) % Plt Count 225 (140-440) K/mcL MPV 10.4 (8.8-12.5) fL Immature Gran % (Auto) 0.6 H (0.0-0.5) % Neut % (Auto) 88.1 H (38.0-78.0) % Lymph % (Auto) 6.3 L (15.5-49.0) % [place] % (Auto) 4.8 (1.0-12.0) % Eos % (Auto) 0.1 (0.0-7.0) % Baso % (Auto) 0.1 (0.0-2.0) % Lymph # (Auto) 0.88 L (1.50-4.80) K/mcL [place] # (Auto) 0.68 (0.10-0.90) K/mcL Eos # (Auto) 0.01 (0.00-0.70) K/mcL Baso # (Auto) 0.02 (0.00-0.30) K/mcL Seg Neutrophils % (38-78) % Band Neutrophils % (0-10) % Lymphocytes % (15-49) % Monocytes % (Manual) (1-12) % Eosinophils % (Manual) (0-7) % Immature Gran # 0.08 H (0.00-0.05) K/mcl Absolute Neutrophils 12.41 H (1.80-8.00) K/mcL Platelet Estimate (Normal) RBC Morphology (Normal) ESR (0-15) mm/hr POC VBG pH (7.32-7.42) POC VBG pCO2 at Temp (41-51) POC VBG pO2 (25-40) POC VBG HCO3 (24-28) POC VBG Total CO2 (25-29) POC Venous O2 Sat (40-70) POC VBG Base Excess (-2-2) VBG Lactic Acid (0.5-2) Sodium 131 L (133-145) mmol/L Potassium 3.7 (3.3-5.1) mmol/L Chloride 92 L (96-108) mmol/L Carbon Dioxide 30 (22-30) mmol/L Anion Gap 9.0 (8.0-16.0) BUN 13 (6-20) mg/dL Creatinine 0.9 (0.7-1.2) mg/dL GFR Calculation 109 Glucose 106 H (70-105) mg/dL Calcium 8.8 (8.6-10.4) mg/dL Total Bilirubin 0.2 (0.1-1.0) mg/dL AST 54 H (<40) U/L ALT 38 (<40) U/L Alkaline Phosphatase 81 (39-117) U/L Total Creatine Kinase (24-195) U/L C-Reactive Protein 37.20 H (0.03-0.80) mg/dL Total Protein 7.1 (5.9-8.4) gm/dL Albumin 3.3 (3.2-5.2) gm/dL Globulin 3.8 H (2.2-3.7) gm/dL Albumin/Globulin Ratio 0.9 L (1.0-2.3) Procalcitonin (<0.10) ng/mL 04/02/22 Range/Units 17:27 WBC (4.5-11.0) K/mcL RBC (4.63-6.08) M/mcL Hgb (13.7-17.5) g/dL Hct (40.1-51.0) % MCV (80.0-100.0) fL MCH (26.0-34.0) pg MCHC (31.0-36.0) g/dL RDW (11.5-14.5) % Plt Count (140-440) K/mcL MPV (8.8-12.5) fL Immature Gran % (Auto) (0.0-0.5) % Neut % (Auto) (38.0-78.0) % Lymph % (Auto) (15.5-49.0) % [place] % (Auto) (1.0-12.0) % Eos % (Auto) (0.0-7.0) % Baso % (Auto) (0.0-2.0) % Lymph # (Auto) (1.50-4.80) K/mcL [place] # (Auto) (0.10-0.90) K/mcL Eos # (Auto) (0.00-0.70) K/mcL Baso # (Auto) (0.00-0.30) K/mcL Seg Neutrophils % (38-78) % Band Neutrophils % (0-10) % Lymphocytes % (15-49) % Monocytes % (Manual) (1-12) % Eosinophils % (Manual) (0-7) % Immature Gran # (0.00-0.05) K/mcl Absolute Neutrophils (1.80-8.00) K/mcL Platelet Estimate (Normal) RBC Morphology (Normal) ESR (0-15) mm/hr POC VBG pH 7.36 (7.32-7.42) POC VBG pCO2 at Temp 55.5 H (41-51) POC VBG pO2 21 L (25-40) POC VBG HCO3 31.0 H (24-28) POC VBG Total CO2 33.0 H (25-29) POC Venous O2 Sat 31.0 L (40-70) POC VBG Base Excess 6.0 H* (-2-2) VBG Lactic Acid 1.5 (0.5-2) Sodium (133-145) mmol/L Potassium (3.3-5.1) mmol/L Chloride (96-108) mmol/L Carbon Dioxide (22-30) mmol/L Anion Gap (8.0-16.0) BUN (6-20) mg/dL Creatinine (0.7-1.2) mg/dL GFR Calculation Glucose (70-105) mg/dL Calcium (8.6-10.4) mg/dL Total Bilirubin (0.1-1.0) mg/dL AST (<40) U/L ALT (<40) U/L Alkaline Phosphatase (39-117) U/L Total Creatine Kinase (24-195) U/L C-Reactive Protein (0.03-0.80) mg/dL Total Protein (5.9-8.4) gm/dL Albumin (3.2-5.2) gm/dL Globulin (2.2-3.7) gm/dL Albumin/Globulin Ratio (1.0-2.3) Procalcitonin (<0.10) ng/mL Discharge Plan Patient/Caregiver Discharge Instructions Pt seen by FAC ENGINEER/PA only: No Clinical Impression: Cellulitis of both lower extremities, Cervical pain (neck) Patient Disposition: Xfer As Outpt/Obs ([facility]) Condition: Fair Discharge Date/Time: 04/03/22 00:30 Discharge Location: [facility] Discharge Comment: pt taken to 129
[2022-04-02 23:00] LABS: Band Neutrophils % 17 % (0-10); Eosinophils % (Manual) 1 % (0-7); Lymphocytes % 8 % (15-49); Monocytes % (Manual) 2 % (1-12); Platelet Estimate NORMAL (Normal); RBC Morphology NORMAL (Normal); Segmented Neutrophils % 72 % (38-78)
[2022-04-03] MEDS ORDERED: MAGNESIUM SULFATE 2 GM/50 ML BAG IV PRN (00:25)
[2022-04-03] MEDS ORDERED: POTASSIUM CHLORIDE 40 MEQ in DEXTROSE 5% IN WATER 500 ML IV PRN (00:25)
[2022-04-03] MEDS ORDERED: 0.9 % SODIUM CHLORIDE 1,000 ML IV ONE (00:25)
[2022-04-03] MEDS ORDERED: POLYETHYLENE GLYCOL 3350 17 GM PACKET PO PRN (00:25)
[2022-04-03] MEDS ORDERED: ACETAMINOPHEN 325 MG TABLET PO PRN (00:25)
[2022-04-03] MEDS ORDERED: SENNOSIDES 1 TABLET PO PRN (00:25)
[2022-04-03] MEDS ORDERED: ONDANSETRON 4 MG/2 ML VIAL IV PRN (00:25)
[2022-04-03] MEDS ORDERED: POTASSIUM CHLORIDE 20 MEQ TABLET PO PRN ×2 (00:25)
[2022-04-03] MEDS: 0.9 % SODIUM CHLORIDE 10 ML SYRINGE IV SCH ×4 (00:25→21:33)
[2022-04-03] MEDS ORDERED: IPRATROPIUM/ALBUTEROL 3 ML AMPUL.NEB NEB PRN (00:25)
[2022-04-03] MEDS ORDERED: VANCOMYCIN PER PHARMACY IV ONE (00:25)
[2022-04-03] MEDS ORDERED: HYDROcodone/APAP 5/325MG TABLET PO ONE ×2 (00:31→05:32)
[2022-04-03] MEDS: HYDROcodone/APAP 5/325MG TABLET PO PRN ×5 (00:34→19:38)
[2022-04-03] MEDS: CLINDAMYCIN IN 0.9 % SOD CHLOR 600 MG/50 ML BAG IV SCH ×3 (01:19→16:52)
[2022-04-03] MEDS: CEFEPIME 2 GM VIAL IV SCH ×3 (01:19→21:33)
[2022-04-03 01:56] LABS: Amphetamine Screen,Urine Suspect positive; Barbiturate Screen,Urine None detected; Benzodiazepines Screen,Urine None detected; Cannabinoid Screen,Urine None detected; Cocaine Screen,Urine None detected; Opiate Screen,Urine None detected; Oxycodone, Urine Screen None detected; Phencyclidine Screen,Urine None detected
[2022-04-03] MEDS ORDERED: morphine 2 MG/ML VIAL ONE ×3 (02:09→05:32)
[2022-04-03] MEDS: morphine 2 MG/ML VIAL IV PRN ×3 (02:11→05:34)
--- NOTE | 2022-04-03 02:15 | XRay Report ---
CLINICAL INFORMATION: Central line placement COMPARISON: 10/05/2012 TECHNIQUE: Portable FINDINGS: Right IJ central line tip overlies the azygos SVC junction. No pneumothorax or other complication from line placement The heart size, mediastinum and pulmonary vessels are unremarkable. The lungs are clear. There are no effusions. The bones and soft tissues are within normal limits. IMPRESSION: No acute disease. Right IJ line overlying azygos SVC junction Interpreted and Authenticated by: Parker Shi 04/03/22
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
--- NOTE | 2022-04-03 02:43 | Cat Scan Report ---
CLINICAL INFORMATION: Trauma COMPARISON: None. TECHNIQUE: 0.625 mm helical slices were obtained from the mid T12 through mid S2 vertebral bodies. Following reconstruction, 2.5 mm coronal, sagittal, and axial reformations (angle to the disc spaces) were processed. Exam was reviewed at bone and soft tissue windows.The exam was performed using radiation dose optimization techniques including, but not limited to, automated exposure control, adjustment of the mA and/or kV according to patient size and use of iterative reconstruction technique. FINDINGS: The lumbar spine is normal in curvature and alignment. There are no fractures or other osseous abnormalities. The region of the conus medullaris and cauda equina roots are normal. There are no soft tissue abnormalities. The L1-2 disc level is normal. At L2-3, moderate broad far left disc protrusion results in severe left IV foraminal narrowing and impingement of the exiting left L2 nerve root. At L3-4, moderate broad disc protrusion and bilateral facet arthropathy result in moderate central canal and moderate bilateral lateral recess and IV foraminal narrowing. There is mild impingement of the exiting L3 and descending L4 nerve roots. At L4-5, moderate broad disc protrusion and facet arthropathy result in moderate central canal, severe right, mild left IV foraminal and bilateral lateral recess narrowing. There is moderate impingement of the exiting right L4 nerve root and mild impingement of the exiting left L5 and descending S1 nerve roots At L5-S1, mild broad disc protrusion facet arthropathy result in moderate bilateral IV foraminal narrowing and mild central canal narrowing. There is impingement of the exiting L5 nerve roots. IMPRESSION: No fracture or posttraumatic change. Multilevel degeneration resulting in central canal, lateral recess and IV foraminal narrowing with nerve root impingement-as described. Interpreted and Authenticated by: Parker Shi 04/03/22
--- NOTE | 2022-04-03 02:47 | Cat Scan Report ---
CLINICAL INFORMATION: Trauma COMPARISON: None. TECHNIQUE: 0.625 mm helical slices were obtained from the mid C7 to the mid L1 vertebral bodies. Following reconstruction, 2.5 mm coronal, sagittal, and axial reformations (angle to the disc spaces) were processed. Exam was reviewed at bone and soft tissue windows.The exam was performed using radiation dose optimization techniques including, but not limited to, automated exposure control, adjustment of the mA and/or kV according to patient size and use of iterative reconstruction technique. FINDINGS: The thoracic spine is normal in curvature and alignment. There are no osseous abnormalities. The thoracic cord is unremarkable. There are no soft tissue abnormalities. All thoracic disc levels are normal without extrusion or protrusion. 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 T11-T12 moderate broad disc protrusion results in moderate central canal and bilateral IV foraminal narrowing more severe on the left. IMPRESSION: No fracture or posttraumatic change. 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 There may be mild exiting T8-T10 nerve root impingement. T11-T12 moderate broad disc protrusion resulting in moderate central canal and bilateral IV foraminal narrowing more severe on the left. Interpreted and Authenticated by: Parker Shi 04/03/22
--- NOTE | 2022-04-03 02:52 | Cat Scan Report ---
CLINICAL INFORMATION: Trauma COMPARISON: None. TECHNIQUE: 0.625 mm helical slices were obtained from the skull base through the superior T2 end plate. Following reconstruction, 2.5 mm sagittal, coronal and axial reformations , with and without disc space angling, were processed. The exam was reviewed at bone and soft tissue windows. The exam was performed using radiation dose optimization techniques including, but not limited to, automated exposure control, adjustment of the mA and/or kV according to patient size and use of iterative reconstruction technique. FINDINGS: Sagittal and coronal reformatted images show the cervical spine is anatomically aligned. There is no fracture or other osseous abnormality. The cervical cord is normal in contour and caliber without focal lesion. The soft tissues are normal. The C2-3 disc level is normal. At C3-4, a large broad disc protrusion facet arthropathy result in moderate central canal and mild bilateral IV foraminal narrowing At C4-5, moderate broad disc protrusion with right-sided asymmetry results in moderate central canal and severe right IV foraminal narrowing. There may be impingement exiting right C5 nerve root At C5-6, mild broad disc protrusion with left-sided asymmetry results in mild central canal and moderate left IV foraminal). There is impingement of the exiting left C6 nerve root The C6-7 and C7-T1 disc levels are normal. IMPRESSION: No fracture or post traumatic Multilevel degeneration resulting in central canal IV foraminal narrowing with nerve root impingement Interpreted and Authenticated by: Parker Shi 04/03/22
--- NOTE | 2022-04-03 03:27 | Cat Scan Report ---
CLINICAL INFORMATION: Right leg swelling and pain COMPARISON: Right foot CT 03/29/2020 TECHNIQUE: 0.625 mm helical slices were obtained from the right femoral diaphysis through the tibia and fibula including the foot and ankle Following reconstruction, 2.5 mm sagittal, coronal and axial reformations , with and without disc space angling, were processed. The exam was reviewed at bone and soft tissue windows. The exam was performed using radiation dose optimization techniques including, but not limited to, automated exposure control, adjustment of the mA and/or kV according to patient size and use of iterative reconstruction technique. FINDINGS: There is no evidence of osteomyelitis. 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 There are no significant osseous abnormalities. All joint spaces are normal in width and alignment without arthritic change. Hallux valgus noted. Moderate diffuse cellulitis seen throughout the calf, ankle and foot. No evidence of abscess. Muscle and fascial planes are normal. IMPRESSION: Diffuse cellulitis throughout the calf and foot most prominent anteriorly. No evidence of abscess or osteomyelitis. 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 Moderate hallux valgus Interpreted and Authenticated by: Parker Shi 04/03/22
[2022-04-03] MEDS ORDERED: VANCOMYCIN PER PHARMACY IV SCH (06:00)
[2022-04-03] MEDS: VANCOMYCIN 1,000 MG in 0.9 % SODIUM CHLORIDE 250 ML IV SCH ×3 (06:28→21:33)
[2022-04-03 06:51] LABS: Basophils # (Auto) 0.01 K/mcL (0.00-0.30); Basophils % (Auto) 0.1 % (0.0-2.0); Eosinophils # (Auto) 0.03 K/mcL (0.00-0.70); Eosinophils % (Auto) 0.3 % (0.0-7.0); Hematocrit 33.5 % (40.1-51.0); Hemoglobin 10.8 g/dL (13.7-17.5); Lymphocytes # (Auto) 1.23 K/mcL (1.50-4.80); Lymphocytes % (Auto) 12.1 % (15.5-49.0); Mean Cell Volume 83.1 fL (80.0-100.0); Mean Corpuscular HGB Conc 32.2 g/dL (31.0-36.0); Mean Platelet Volume 10.1 fL (8.8-12.5); Monocytes # (Auto) 0.74 K/mcL (0.10-0.90); Monocytes % (Auto) 7.3 % (1.0-12.0); Neutrophils % (Auto) 79.6 % (38.0-78.0); Platelet Count 198 K/mcL (140-440); RBC 4.03 M/mcL (4.63-6.08); Red Cell Distribution Width 12.6 % (11.5-14.5); WBC 10.2 K/mcL (4.5-11.0)
[2022-04-03 07:29] LABS: ALT/SGPT 31 U/L (<40); AST/SGOT 31 U/L (<40); Albumin 2.7 gm/dL (3.2-5.2); Albumin/Globulin Ratio 0.8 (1.0-2.3); Alkaline Phosphatase 78 U/L (39-117); Bilirubin,Direct < 0.2 mg/dL (0-0.3); Bilirubin,Total 0.2 mg/dL (0.1-1.0); Blood Urea Nitrogen 11 mg/dL (6-20); Calcium 8.4 mg/dL (8.6-10.4); Carbon Dioxide 30 mmol/L (22-30); Chloride 98 mmol/L (96-108); Globulin 3.2 gm/dL (2.2-3.7); Glomerular Filtration Rate 109; Glucose 108 mg/dL (70-105); Lactate Dehydrogenase 206 U/L (135-225); Phosphorous 2.3 mg/dL (2.5-4.5); Triglycerides 343 mg/dL (<150); Uric Acid 4.7 mg/dL (2.5-8.0)
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
[2022-04-03] MEDS: ENOXAPARIN 40 MG/0.4 ML SYRINGE SQ SCH (08:48)
[2022-04-03] MEDS: DOCUSATE SODIUM 100 MG CAPSULE PO SCH ×2 (08:49→21:43)
[2022-04-03] MEDS ORDERED: FUROSEMIDE 40 MG/4 ML VIAL IV SCH (08:50)
[2022-04-03] MEDS ORDERED: ALBUMIN HUMAN 12.5 GM/50 ML BAG IV SCH (08:50)
[2022-04-03] MEDS: HYDROmorphone 0.5 MG/0.5 ML SYRINGE IV PRN ×3 (10:17→18:38)
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
[2022-04-03] MEDS: clonazePAM 1 MG TABLET PO SCH ×2 (18:54→21:32)
[2022-04-03] MEDS: oxyCODONE HCL 5 MG TABLET PO PRN (23:30)
[2022-04-04] MEDS: oxyCODONE HCL 5 MG TABLET PO PRN ×5 (03:46→21:07)
[2022-04-04] MEDS: 0.9 % SODIUM CHLORIDE 10 ML SYRINGE IV SCH ×3 (05:19→21:07)
[2022-04-04 06:52] LABS: Basophils # (Auto) 0.04 K/mcL (0.00-0.30); Basophils % (Auto) 0.5 % (0.0-2.0); Eosinophils # (Auto) 0.04 K/mcL (0.00-0.70); Eosinophils % (Auto) 0.5 % (0.0-7.0); Hematocrit 31.7 % (40.1-51.0); Lymphocytes # (Auto) 1.33 K/mcL (1.50-4.80); Mean Cell Volume 83.9 fL (80.0-100.0); Mean Corpuscular HGB Conc 31.5 g/dL (31.0-36.0); Monocytes # (Auto) 0.99 K/mcL (0.10-0.90); Monocytes % (Auto) 11.9 % (1.0-12.0); Neutrophils % (Auto) 70.3 % (38.0-78.0); Platelet Count 200 K/mcL (140-440); RBC 3.78 M/mcL (4.63-6.08); WBC 8.3 K/mcL (4.5-11.0)
[2022-04-04 07:33] LABS: ALT/SGPT 33 U/L (<40); AST/SGOT 24 U/L (<40); Albumin 2.8 gm/dL (3.2-5.2); Albumin/Globulin Ratio 0.9 (1.0-2.3); Alkaline Phosphatase 71 U/L (39-117); Bilirubin,Direct < 0.2 mg/dL (0-0.3); Bilirubin,Total 0.2 mg/dL (0.1-1.0); Blood Urea Nitrogen 10 mg/dL (6-20); Calcium 8.6 mg/dL (8.6-10.4); Carbon Dioxide 29 mmol/L (22-30); Chloride 98 mmol/L (96-108); Globulin 3.2 gm/dL (2.2-3.7); Glomerular Filtration Rate 114; Glucose 102 mg/dL (70-105); Lactate Dehydrogenase 184 U/L (135-225); Triglycerides 246 mg/dL (<150); Uric Acid 4.3 mg/dL (2.5-8.0)
[2022-04-04] MEDS: VANCOMYCIN 1,500 MG in 0.9 % SODIUM CHLORIDE 500 ML IV SCH ×3 (07:41→23:44)
[2022-04-04] MEDS: HYDROmorphone 0.5 MG/0.5 ML SYRINGE IV PRN ×6 (07:51→23:44)
[2022-04-04] MEDS: VANCOMYCIN 1,000 MG in 0.9 % SODIUM CHLORIDE 250 ML IV SCH (07:59)
[2022-04-04] MEDS: clonazePAM 1 MG TABLET PO SCH ×2 (10:06→19:32)
[2022-04-04] MEDS: LOSARTAN 50 MG TABLET PO SCH (10:06)
[2022-04-04] MEDS: SPIRONOLACTONE 25 MG TABLET PO SCH (10:07)
[2022-04-04] MEDS: ENOXAPARIN 40 MG/0.4 ML SYRINGE SQ SCH (10:07)
[2022-04-04] MEDS: DOCUSATE SODIUM 100 MG CAPSULE PO SCH ×2 (10:07→21:15)
[2022-04-04] MEDS: CEFEPIME 2 GM VIAL IV SCH ×2 (10:28→21:06)
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
[2022-04-05] MEDS: HYDROmorphone 0.5 MG/0.5 ML SYRINGE IV PRN ×8 (01:50→21:58)
[2022-04-05] MEDS: oxyCODONE HCL 5 MG TABLET PO PRN ×5 (01:51→20:11)
[2022-04-05] MEDS: 0.9 % SODIUM CHLORIDE 10 ML SYRINGE IV SCH ×3 (06:24→20:20)
[2022-04-05] MEDS: CEFEPIME 2 GM VIAL IV SCH (08:51)
[2022-04-05] MEDS: ENOXAPARIN 40 MG/0.4 ML SYRINGE SQ SCH (08:52)
[2022-04-05] MEDS: SPIRONOLACTONE 25 MG TABLET PO SCH (08:52)
[2022-04-05] MEDS: DOCUSATE SODIUM 100 MG CAPSULE PO SCH ×2 (08:52→20:12)
[2022-04-05] MEDS: LOSARTAN 50 MG TABLET PO SCH (08:52)
[2022-04-05] MEDS: clonazePAM 1 MG TABLET PO SCH (08:53)
[2022-04-05] MEDS: VANCOMYCIN 1,500 MG in 0.9 % SODIUM CHLORIDE 500 ML IV SCH (08:53)
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
--- NOTE | 2022-04-05 14:34 | Internal Med Progress Note ---
SUBJECTIVE Subjective Patient information: TELEMEDICINE INFECTIOUS DISEASE FOLLOW UP NOTE Note initiated : 04/05/22 at 2:04 pm Service Date, if different from initiated Date: [] Phil Castaneda is a 37y/o male with pmhx PWID admitted on 04/02 after p/w with falling at home. As per patient, he fell a few days prior and hit his head and was not feeling well and his legs got more swollen and painful but was unable to take care of them because of neck pain. Upon admission, pt was afebrile but found tachycardic but hemodynamically stable. Initial labs found with leukocytosis of 14k, elevated pct 6.15, elevated CRP (37), cpk 1185. Of note, pt has a hx of wound infections and has been on antibiotics in the past, prior wound foot infection cultures had shown growth of MSSA, MRSA, Aeromonas, Pseudomonas, Enterobacter, Strept agalactiae. Trauma imaging including Head, Cervical, Thoracic, and Lumbar CT scans showed no findings of acute fracture. CXR no acute disease. CT of RLE performed after patient seen with presence of swelling, redness, and pain showed diffuse cellulitis through the calf and foot most prominent anteriorly. No abscess or OM identified. Due to poor peripheral IV acces, central line was placed in the ED. On physical examination, pt had a wound in his left foot, and cultures were taken. Pt was given one dose of IV Ceftriaxone in ED, started on Clindamycin (for 48hrs), Vancomycin, and Cefepime. Principal diagnosis: Right lower extremity cellulitis, Left lower extremity abscess Interval history: MRSA nare screen negative Blood cultures show no growth at 48hrs Wound culture from left leg growing MSSA + Group B Streptoccus (agalactiae) Pertinent ROS: Pain in both lower extremities upon admission Constitutional Vitals: Vital Signs Temp Pulse Resp BP Pulse Ox O2 Del Method 98.6 F 102 H 20 140/83 99 04/05/22 11:31 04/05/22 11:31 04/05/22 11:31 04/05/22 11:31 04/05/22 11:31 04/05/22 11:31 Period Temp Pulse Resp BP Sys/Stevenson Pulse Ox O2 Del Method O2 Flow Rate Last 24 Hr 97.1 F-99.5 F 80-102 16-20 130-153/65-83 97-99 Room Air-Room Air Intake and Output 04/05/22 04/05/22 04/05/22 03:59 11:59 19:59 Intake Total 950 500 Balance 950 500 Intake & Output: Intake & Output 04/05/22 04/05/22 04/05/22 03:59 11:59 19:59 Intake Total 950 500 Balance 950 500 Intake: IV 500 500 Vancomycin 1,500 mg In Sodium 500 500 Chloride 0.9% 500 ml @ 333.3 mls/hr IV Q8H SUZ[facility] Rx#:[id number] Oral 450 Other: # Voids 5 Head Head exam: Present atraumatic and normocephalic Eye Eye exam: Present EOMI Pupils: Present PERRL ENT ENT exam: Present mucous membranes moist Neck Neck exam: Present full ROM Respiratory Respiratory exam: Present normal respiratory exam Cardiovascular Cardiovascular exam: Present tachycardia GI/Abdominal GI/Abdominal exam: Present soft Extremities Exam Additional comments: bilateral symmetric extremities; improving erythema and swelling of RLE; residual edema on right ankle; bandage on LLE, improved erythema Expanded Upper Extremity Exam General: Present normal inspection Expanded Lower Extremity Exam Hip exam: Present erythema, full ROM and tenderness Upper Leg exam: Present full ROM Lower leg exam: Present erythema, swelling and tenderness Ankle exam: Present swelling Foot/Toe exam: Present swelling Leg image: 1. improving erythema and edema of RLE 2. Presence of bandage in left lower extremity Top foot image: 1. improving ankle edema and erythema Back Exam Back exam: Present full ROM Neurological Exam Neurological exam: Present oriented X3 Skin Additional comments: tattoos in torso and upper extremities Expanded Skin Exam Body image: 1. receding skin rash OBJ DATA Labs CBC & Chem 7: 04/04/22 05:18 04/04/22 05:18 Labs: Abnormal Lab Results 04/04/22 04/04/22 04/04/22 05:18 05:18 05:18 WBC RBC 3.78 L Hgb 10.0 L Hct 31.7 L Immature Gran % (Auto) 0.8 H Neut % (Auto) Lymph % (Auto) Lymph # (Auto) 1.33 L [place] # (Auto) 0.99 H Band Neutrophils % Lymphocytes % Immature Gran # 0.07 H Absolute Neutrophils ESR POC VBG pCO2 at Temp POC VBG pO2 POC VBG HCO3 POC VBG Total CO2 POC Venous O2 Sat POC VBG Base Excess Sodium Chloride Glucose Calcium Phosphorus AST Total Creatine Kinase C-Reactive Protein 15.30 H Albumin 2.8 L Globulin Albumin/Globulin Ratio 0.9 L Triglycerides 246 H Procalcitonin 2.08 H Ur Amphetamines Screen 04/03/22 04/03/22 04/03/22 05:12 05:12 05:12 WBC RBC 4.03 L Hgb 10.8 L Hct 33.5 L Immature Gran % (Auto) 0.6 H Neut % (Auto) 79.6 H Lymph % (Auto) 12.1 L Lymph # (Auto) 1.23 L [place] # (Auto) Band Neutrophils % Lymphocytes % Immature Gran # 0.06 H Absolute Neutrophils 8.13 H ESR POC VBG pCO2 at Temp POC VBG pO2 POC VBG HCO3 POC VBG Total CO2 POC Venous O2 Sat POC VBG Base Excess Sodium Chloride Glucose 108 H Calcium 8.4 L Phosphorus 2.3 L AST Total Creatine Kinase 507 H C-Reactive Protein Albumin 2.7 L Globulin Albumin/Globulin Ratio 0.8 L Triglycerides 343 H Procalcitonin Ur Amphetamines Screen 04/02/22 04/02/22 04/02/22 23:59 17:27 17:20 WBC RBC Hgb Hct Immature Gran % (Auto) Neut % (Auto) Lymph % (Auto) Lymph # (Auto) [place] # (Auto) Band Neutrophils % Lymphocytes % Immature Gran # Absolute Neutrophils ESR POC VBG pCO2 at Temp 55.5 H POC VBG pO2 21 L POC VBG HCO3 31.0 H POC VBG Total CO2 33.0 H POC Venous O2 Sat 31.0 L POC VBG Base Excess 6.0 H* Sodium Chloride Glucose Calcium Phosphorus AST Total Creatine Kinase C-Reactive Protein 37.20 H Albumin Globulin Albumin/Globulin Ratio Triglycerides Procalcitonin Ur Amphetamines Screen Suspect positive A 04/02/22 04/02/22 04/02/22 17:20 17:20 16:18 WBC 14.1 H RBC 4.51 L Hgb 12.5 L Hct 37.9 L Immature Gran % (Auto) 0.6 H Neut % (Auto) 88.1 H Lymph % (Auto) 6.3 L Lymph # (Auto) 0.88 L [place] # (Auto) Band Neutrophils % Lymphocytes % Immature Gran # 0.08 H Absolute Neutrophils 12.41 H ESR POC VBG pCO2 at Temp POC VBG pO2 POC VBG HCO3 POC VBG Total CO2 POC Venous O2 Sat POC VBG Base Excess Sodium 131 L Chloride 92 L Glucose 106 H Calcium Phosphorus AST 54 H Total Creatine Kinase 1185 H C-Reactive Protein Albumin Globulin 3.8 H Albumin/Globulin Ratio 0.9 L Triglycerides Procalcitonin Ur Amphetamines Screen 04/02/22 04/02/22 16:18 16:18 WBC RBC Hgb Hct Immature Gran % (Auto) Neut % (Auto) Lymph % (Auto) Lymph # (Auto) [place] # (Auto) Band Neutrophils % 17 H Lymphocytes % 8 L Immature Gran # Absolute Neutrophils ESR 106 H POC VBG pCO2 at Temp POC VBG pO2 POC VBG HCO3 POC VBG Total CO2 POC Venous O2 Sat POC VBG Base Excess Sodium Chloride Glucose Calcium Phosphorus AST Total Creatine Kinase C-Reactive Protein Albumin Globulin Albumin/Globulin Ratio Triglycerides Procalcitonin 6.15 H Ur Amphetamines Screen Meds: Medications Acetaminophen (Acetaminophen 325 Mg Tablet) 650 mg PO Q6HP PRN; Protocol PRN Reason: Per Pain Protocol/Fever > 101 Last Admin: 04/03/22 22:46 Dose: 650 mg Albuterol/Ipratropium (Ipratropium/Albuterol 3 Ml Ampul.Neb) 3 ml NEB Q4HP PRN PRN Reason: Shortness Of Breath Cefepime HCl (Cefepime 2 Gm Vial) 2 gm IV Q12H [facility]; Protocol Last Admin: 04/05/22 08:51 Dose: 2 gm Clonazepam (Clonazepam 1 Mg Tablet) 2 mg PO DAILY [facility] Last Admin: 04/05/22 08:53 Dose: 2 mg Clonazepam (Clonazepam 1 Mg Tablet) 1 mg PO 1500 [facility] Clotrimazole (Clotrimazole Crm 1% 1 Dose Tube) 1 dose TOPICAL BID [facility] Stop: 04/19/22 10:59 Docusate Sodium (Docusate Sodium 100 Mg Capsule) 100 mg PO BID [facility] Last Admin: 04/05/22 08:52 Dose: 100 mg Enoxaparin Sodium (Enoxaparin 40 Mg/0.4 Ml Syringe) 40 mg SQ DAILY [facility] Last Admin: 04/05/22 08:52 Dose: 40 mg Hydromorphone HCl (Hydromorphone 0.5 Mg/0.5 Ml Syringe) 0.5 mg IV Q2HP PRN; P rotocol PRN Reason: Per Pain Protocol Last Admin: 04/05/22 13:44 Dose: 0.5 mg Potassium Chloride 40 meq/ (Dextrose) 520 mls @ 130 mls/hr IV UD PRN PRN Reason: Potassium < 3 Magnesium Sulfate (Magnesium Sulfate) 2 gm in 50 mls @ 50 mls/hr IV UD PRN PRN Reason: Magnesium </= 1.6 Vancomycin HCl 1,500 mg/ (Sodium Chloride) 500 mls @ 333.3 mls/hr IV Q8H [facility] Last Infusion: 04/05/22 12:15 Dose: Infused Losartan Potassium (Losartan 50 Mg Tablet) 50 mg PO DAILY [facility] Last Admin: 04/05/22 08:52 Dose: 50 mg Ondansetron HCl (Ondansetron 4 Mg/2 Ml Vial) 4 mg IV Q4HP PRN PRN Reason: Nausea And Vomiting Oxycodone HCl (Oxycodone Hcl 5 Mg Tablet) 5 mg PO Q4HP PRN; Protocol PRN Reason: Per Pain Protocol Last Admin: 04/05/22 10:24 Dose: 5 mg Polyethylene Glycol (Polyethylene Glycol 3350 17 Gm Packet) 17 gm PO DAILYP PRN PRN Reason: Constipation Potassium Chloride (Potassium Chloride 20 Meq Tablet) 40 meq PO UD PRN PRN Reason: Potssium is 3-3.5 Potassium Chloride (Potassium Chloride 20 Meq Tablet) 40 meq PO UD PRN PRN Reason: Potassium < 3 Senna (Sennosides 1 Tablet) 2 tab PO DAILYP PRN PRN Reason: Constipation Sodium Chloride (0.9 % Sodium Chloride 10 Ml Syringe) 10 ml IV Q8 [facility] Last Admin: 04/05/22 06:24 Dose: 10 ml Spironolactone (Spironolactone 25 Mg Tablet) 50 mg PO DAILY [facility] Last Admin: 04/05/22 08:52 Dose: 50 mg Vancomycin HCl (Vancomycin Per Pharmacy) 1 order IV UD [facility]; Protocol A/P Assessment and plan (1) Cellulitis of right leg: Assessment and plan: 37M pmhx PWID comes on 04/02 after falling at home, upon admission found afebrile but with leukocytosis and increased CPK on labs. On physical exam +RLE cellulitis below the knee and LLE abscess. RLE CT+ cellulitis, no OM. Started on Vancomycin + Cefepime, Clindamycin. Wound cx from LLE +MSSA and Group B streptococcus. WBC downtrended (14k > 8k). Plan: - discontinue IV Vancomycin - discontinue IV Cefepime - start Cefazolin 1g IV q8hrs while admitted - upon discharge, switch to Cephalexin 500mg PO q6hrs to complete a total 14 day course - follow up outpatient 1 week after discharge to assess improvement; given patient's recurrent history of cellulitis needs close follow up Status: Acute (2) Abscess of left leg excluding foot: Status: Acute (3) Tinea pedis due to epidermophyton: Plan: - complete 14 day course Clotrimazole 1% topical to apply between the toes twice a day - keep feet dry Status: Acute (4) MSSA (methicillin susceptible Staphylococcus aureus) infection: Status: Acute (5) GBS (group B streptococcus) infection: Status: Acute Time Spent With Patient Time: Total time spent is greater than 50% in coordination of care (as documented) at patient's floor/unit and/or counseling patient: Total time spent with greater than 50% in coordination of care (as documented) at patient's floor/unit and/or counseling patient:: 15 - 24 minutes Total Critical Care Time: 30 (mins) Attestation: Jennifer Rinaldi MD Infectious Disease [employer] Aligner #[phone] QUALITY VTE Deep Vein Thrombosis/Pulmonary Embolism Present on Admission: No
[2022-04-05] MEDS: CLOTRIMAZOLE CRM 1% 1 DOSE TUBE TOPICAL SCH ×2 (14:37→22:18)
[2022-04-05] MEDS ORDERED: clonazePAM 1 MG TABLET PO SCH (15:00)
--- NOTE | 2022-04-05 15:12 | Internal Med Progress Note ---
SUBJECTIVE Subjective Patient information: Note initiated : 04/05/22 at 3:04 pm Service Date, if different from initiated Date: Patient: Phil Tucker 37 y/o M admitted on 04/04/22 for neck damage from falling rock. Principal diagnosis: Right lower extremity cellulitis, Left lower extremity abscess Interval history: No overnight issue. Patient constantly complaining of pain even though he seems comfortable. Per RN patient's girlfriend was in the room and very suspicious for using some sort of drugs in the room but I cannot confirm it. building custodial supervisor has been contacted and discussed with patient about our policy. No reported fever chills cough chest pain shortness of breath Pertinent ROS: Except as documented all systems reviewed and negative Constitutional Vitals: Vital Signs Temp Pulse Resp BP Pulse Ox O2 Del Method 98.6 F 102 H 20 140/83 99 04/05/22 11:31 04/05/22 11:31 04/05/22 11:31 04/05/22 11:31 04/05/22 11:31 04/05/22 11:31 Period Temp Pulse Resp BP Sys/Stevenson Pulse Ox O2 Del Method O2 Flow Rate Last 24 Hr 97.1 F-99.5 F 80-102 16-20 130-153/65-83 97-99 Room Air-Room Air Intake and Output 04/05/22 04/05/22 04/05/22 03:59 11:59 19:59 Intake Total 950 500 Balance 950 500 Weight 120.746 kg Patient Weight 04/06/22 03:59 Weight 120.746 kg Intake & Output: Intake & Output 04/05/22 04/05/22 04/05/22 03:59 11:59 19:59 Intake Total 950 500 Balance 950 500 Weight 120.746 kg Intake: IV 500 500 Vancomycin 1,500 mg In Sodium 500 500 Chloride 0.9% 500 ml @ 333.3 mls/hr IV Q8H [facility] Rx#:[id number] Oral 450 Other: # Voids 5 Exam: General: Young obese male with BMI 34 in no distress alert, Awake, No acute Distress Eyes/N/T: EOMI, clear cornea Head/Neck: neck supple, no JVD CV: RRR, No murmurs, 2+ bilateral lower extremity edema Pulm: Clear b/l, no wheezing/rhonchi/rales. Abd: Obese, soft, nontender, +BS x4 Ext: Bilateral lower extremity 2+ edema and redness/erythema right more than left. Old scar from. Previous wound. No open wound or ulcer. No drainage. No foul smelling. Bilateral upper extremity swelling as well. Patient said this is normal for him. Neuro: Alert, no focal deficits, moves all extremities, Skin: warm/dry OBJ DATA Labs CBC & Chem 7: 04/04/22 05:18 04/04/22 05:18 Labs: Abnormal Lab Results 04/04/22 04/04/22 04/04/22 05:18 05:18 05:18 WBC RBC 3.78 L Hgb 10.0 L Hct 31.7 L Immature Gran % (Auto) 0.8 H Neut % (Auto) Lymph % (Auto) Lymph # (Auto) 1.33 L Sully # (Auto) 0.99 H Band Neutrophils % Lymphocytes % Immature Gran # 0.07 H Absolute Neutrophils ESR POC VBG pCO2 at Temp POC VBG pO2 POC VBG HCO3 POC VBG Total CO2 POC Venous O2 Sat POC VBG Base Excess Sodium Chloride Glucose Calcium Phosphorus AST Total Creatine Kinase C-Reactive Protein 15.30 H Albumin 2.8 L Globulin Albumin/Globulin Ratio 0.9 L Triglycerides 246 H Procalcitonin 2.08 H Ur Amphetamines Screen 04/03/22 04/03/22 04/03/22 05:12 05:12 05:12 WBC RBC 4.03 L Hgb 10.8 L Hct 33.5 L Immature Gran % (Auto) 0.6 H Neut % (Auto) 79.6 H Lymph % (Auto) 12.1 L Lymph # (Auto) 1.23 L Sully # (Auto) Band Neutrophils % Lymphocytes % Immature Gran # 0.06 H Absolute Neutrophils 8.13 H ESR POC VBG pCO2 at Temp POC VBG pO2 POC VBG HCO3 POC VBG Total CO2 POC Venous O2 Sat POC VBG Base Excess Sodium Chloride Glucose 108 H Calcium 8.4 L Phosphorus 2.3 L AST Total Creatine Kinase 507 H C-Reactive Protein Albumin 2.7 L Globulin Albumin/Globulin Ratio 0.8 L Triglycerides 343 H Procalcitonin Ur Amphetamines Screen 04/02/22 04/02/22 04/02/22 23:59 17:27 17:20 WBC RBC Hgb Hct Immature Gran % (Auto) Neut % (Auto) Lymph % (Auto) Lymph # (Auto) Sully # (Auto) Band Neutrophils % Lymphocytes % Immature Gran # Absolute Neutrophils ESR POC VBG pCO2 at Temp 55.5 H POC VBG pO2 21 L POC VBG HCO3 31.0 H POC VBG Total CO2 33.0 H POC Venous O2 Sat 31.0 L POC VBG Base Excess 6.0 H* Sodium Chloride Glucose Calcium Phosphorus AST Total Creatine Kinase C-Reactive Protein 37.20 H Albumin Globulin Albumin/Globulin Ratio Triglycerides Procalcitonin Ur Amphetamines Screen Suspect positive A 04/02/22 04/02/22 04/02/22 17:20 17:20 16:18 WBC 14.1 H RBC 4.51 L Hgb 12.5 L Hct 37.9 L Immature Gran % (Auto) 0.6 H Neut % (Auto) 88.1 H Lymph % (Auto) 6.3 L Lymph # (Auto) 0.88 L Sully # (Auto) Band Neutrophils % Lymphocytes % Immature Gran # 0.08 H Absolute Neutrophils 12.41 H ESR POC VBG pCO2 at Temp POC VBG pO2 POC VBG HCO3 POC VBG Total CO2 POC Venous O2 Sat POC VBG Base Excess Sodium 131 L Chloride 92 L Glucose 106 H Calcium Phosphorus AST 54 H Total Creatine Kinase 1185 H C-Reactive Protein Albumin Globulin 3.8 H Albumin/Globulin Ratio 0.9 L Triglycerides Procalcitonin Ur Amphetamines Screen 04/02/22 04/02/22 16:18 16:18 WBC RBC Hgb Hct Immature Gran % (Auto) Neut % (Auto) Lymph % (Auto) Lymph # (Auto) Sully # (Auto) Band Neutrophils % 17 H Lymphocytes % 8 L Immature Gran # Absolute Neutrophils ESR 106 H POC VBG pCO2 at Temp POC VBG pO2 POC VBG HCO3 POC VBG Total CO2 POC Venous O2 Sat POC VBG Base Excess Sodium Chloride Glucose Calcium Phosphorus AST Total Creatine Kinase C-Reactive Protein Albumin Globulin Albumin/Globulin Ratio Triglycerides Procalcitonin 6.15 H Ur Amphetamines Screen Meds: Medications Acetaminophen (Acetaminophen 325 Mg Tablet) 650 mg PO Q6HP PRN; Protocol PRN Reason: Per Pain Protocol/Fever > 101 Last Admin: 04/03/22 22:46 Dose: 650 mg Albuterol/Ipratropium (Ipratropium/Albuterol 3 Ml Ampul.Neb) 3 ml NEB Q4HP PRN PRN Reason: Shortness Of Breath Cefepime HCl (Cefepime 2 Gm Vial) 2 gm IV Q12H [facility]; Protocol Last Admin: 04/05/22 08:51 Dose: 2 gm Clonazepam (Clonazepam 1 Mg Tablet) 2 mg PO DAILY [facility] Last Admin: 04/05/22 08:53 Dose: 2 mg Clonazepam (Clonazepam 1 Mg Tablet) 1 mg PO 1500 [facility] Last Admin: 04/05/22 14:44 Dose: 1 mg Clotrimazole (Clotrimazole Crm 1% 1 Dose Tube) 1 dose TOPICAL BID [facility] Stop: 04/19/22 10:59 Last Admin: 04/05/22 14:37 Dose: 1 dose Docusate Sodium (Docusate Sodium 100 Mg Capsule) 100 mg PO BID [facility] Last Admin: 04/05/22 08:52 Dose: 100 mg Enoxaparin Sodium (Enoxaparin 40 Mg/0.4 Ml Syringe) 40 mg SQ DAILY [facility] Last Admin: 04/05/22 08:52 Dose: 40 mg Hydromorphone HCl (Hydromorphone 0.5 Mg/0.5 Ml Syringe) 0.5 mg IV Q2HP PRN; Protocol PRN Reason: Per Pain Protocol Last Admin: 04/05/22 13:44 Dose: 0.5 mg Potassium Chloride 40 meq/ (Dextrose) 520 mls @ 130 mls/hr IV UD PRN PRN Reason: Potassium < 3 Magnesium Sulfate (Magnesium Sulfate) 2 gm in 50 mls @ 50 mls/hr IV UD PRN PRN Reason: Magnesium </= 1.6 Vancomycin HCl 1,500 mg/ (Sodium Chloride) 500 mls @ 333.3 mls/hr IV Q8H [facility] Last Infusion: 04/05/22 12:15 Dose: Infused Losartan Potassium (Losartan 50 Mg Tablet) 50 mg PO DAILY [facility] Last Admin: 04/05/22 08:52 Dose: 50 mg Ondansetron HCl (Ondansetron 4 Mg/2 Ml Vial) 4 mg IV Q4HP PRN PRN Reason: Nausea And Vomiting Oxycodone HCl (Oxycodone Hcl 5 Mg Tablet) 5 mg PO Q4HP PRN; Protocol PRN Reason: Per Pain Protocol Last Admin: 04/05/22 14:36 Dose: 5 mg Polyethylene Glycol (Polyethylene Glycol 3350 17 Gm Packet) 17 gm PO DAILYP PRN PRN Reason: Constipation Potassium Chloride (Potassium Chloride 20 Meq Tablet) 40 meq PO UD PRN PRN Reason: Potssium is 3-3.5 Potassium Chloride (Potassium Chloride 20 Meq Tablet) 40 meq PO UD PRN PRN Reason: Potassium < 3 Senna (Sennosides 1 Tablet) 2 tab PO DAILYP PRN PRN Reason: Constipation Sodium Chloride (0.9 % Sodium Chloride 10 Ml Syringe) 10 ml IV Q8 [facility] Last Admin: 04/05/22 14:40 Dose: 10 ml Spironolactone (Spironolactone 25 Mg Tablet) 50 mg PO DAILY [facility] Last Admin: 04/05/22 08:52 Dose: 50 mg Vancomycin HCl (Vancomycin Per Pharmacy) 1 order IV UD SUZY; Protocol A/P Assessment and plan (1) Cellulitis of both lower extremities: Assessment and plan: 37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 # Recurrent LE cellulitis # Now with B/L LE cellulitis and wounds (acute on chronic wounds) and Abscess -CRP 37, ESR 106, elevated PCT -CT right leg diffuse cellulitis, no abscess. No OM - Wound cx from LLE +MSSA and Group B streptococcus - Per ID:Dc, IV Vancomycin & IV Cefepime - Start Cefazolin 1g IV q8hrs while admitted and upon discharge, switch to Cephalexin 500mg PO q6hrs to complete a total 14 day course - follow up outpatient 1 week after discharge to assess improvement; given patient's recurrent history of cellulitis needs close follow up # Bilateral upper and lower extremity pitting edema. -No evidence of renal failure/nephrotic syndrome - Echo showed normal study with normal EF. #Tinea pedis due to epidermophyton - Cont Clotrimazole 1% topical between toes twice a day for 14 days, advised patient to keep feet dry and apply antifungal powder if wearing socks/sneakers # SIRS (Tachyardia/Leukocytosis): - leukocytosis improving - Rx as above # Elevated CPK 1185. - Trending down to 507. S/p IVF. NO kidney injury #Hyponatremia: 131. Due to acute infection. Resolved #Opioid use disorder: On Suboxone at home. Currently on narcotics for pain control # h/o Drug use: denies current use, However, UDS with positive Amphetamine # Anxiety: On clonazepam DVT PPX: Lovenox 40mg daily Code Status : Full code Disposition: Inpatient Plan of care discussed with patient and RN Status: Acute (2) Tinea pedis due to epidermophyton: Status: Acute (3) Abscess of left leg excluding foot: Status: Acute (4) Cellulitis of right leg: Status: Acute Sepsis Sepsis Identified: No Time Spent With Patient Time: Total time spent is greater than 50% in coordination of care (as documented) at patient's floor/unit and/or counseling patient: Total time spent with greater than 50% in coordination of care (as documented) at patient's floor/unit and/or counseling patient:: 35 - 50 minutes Critical Care Time: No QUALITY VTE Deep Vein Thrombosis/Pulmonary Embolism Present on Admission: No
[2022-04-05] MEDS ORDERED: ceFAZolin 2 GM in DEXTROSE 5% IN WATER 50 ML IV SCH (15:15)
[2022-04-05] MEDS ORDERED: ALTEPLASE 2 MG VIAL IV ONE (15:57)
[2022-04-05] MEDS: ceFAZolin 1 GM VIAL IV SCH ×2 (16:24→21:58)
[2022-04-06] MEDS: oxyCODONE HCL 5 MG TABLET PO PRN ×4 (00:29→13:00)
[2022-04-06] MEDS: HYDROmorphone 0.5 MG/0.5 ML SYRINGE IV PRN ×4 (03:18→13:00)
[2022-04-06] MEDS: 0.9 % SODIUM CHLORIDE 10 ML SYRINGE IV SCH (05:25)
[2022-04-06] MEDS: ceFAZolin 1 GM VIAL IV SCH ×2 (05:25→13:01)
[2022-04-06] MEDS: clonazePAM 1 MG TABLET PO SCH (08:42)
[2022-04-06] MEDS: LOSARTAN 50 MG TABLET PO SCH (08:42)
[2022-04-06] MEDS: DOCUSATE SODIUM 100 MG CAPSULE PO SCH (08:42)
[2022-04-06] MEDS: ENOXAPARIN 40 MG/0.4 ML SYRINGE SQ SCH (08:42)
[2022-04-06] MEDS: SPIRONOLACTONE 25 MG TABLET PO SCH (08:42)
--- NOTE | 2022-04-06 11:10 | Discharge Summary ---
Discharge Provider Provider IMPORTANT FOLLOW-UP INFORMATION FOR PCP: Patient information: Note initiated : 04/06/22 at 11:02 am Service Date, if different from initiated Date: [] Patient: Phil Tucker 37 y/o M admitted on 04/04/22 for neck damage from falling rock-Cellulitis Bilateral. Chief Complaint: B/L LE edema , redness Date of admission: 04/04/22 12:00 Discharge date: 04/06/22 Primary care physician: AUGUST La Admitting clinician: Andrea Toledo Attending physician on admission: Andrea Toledo Consults: 04/02/22 Consult to Physician [CONS] Stat Comment: Consulting Provider: Andrea Toledo Reason For Exam: Physician to Consult 04/03/22 08:40 Consult to Physician [CONS] Routine Comment: severe b/l cellulitis R>L, h/o drug abuse Consulting Provider: Rogerio Gonzalez - DANIEL Reason For Exam: Physician to Consult 04/03/22 12:16 Consult to Physician [CONS] Routine Comment: Wound care for cellulitis of lower legs Consulting Provider: Elieser Carrillo Reason For Exam: Physician to Consult Attending physician on discharge: Tab Sandoval Discharging clinician: Tab Sandoval COURSE Hospital Course Hospital course: 37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 ID was consulted. Hospital course is as following. # Recurrent LE cellulitis # Now with B/L LE cellulitis and wounds (acute on chronic wounds) R>L -CRP 37, ESR 106, elevated PCT -CT right leg diffuse cellulitis, no abscess. No OM - Wound cx from LLE +MSSA and Group B streptococcus - Rxe initially with IV Vancomycin & IV Cefepime. Wound Cx grew MSSA and Anbx changed to Cefazolin 1g IV q8hrs while admitted - ID recommended upon discharge, switch to Cephalexin 500mg PO q6hrs to complete a total 14 day course - follow up outpatient 1 week after discharge to assess improvement; given patient's recurrent history of cellulitis needs close follow up # Bilateral upper and lower extremity pitting edema. -No evidence of renal failure/nephrotic syndrome - Echo showed normal study with normal EF. - Need further work up as OP #Tinea pedis due to epidermophyton - Cont Clotrimazole 1% topical between toes twice a day for 14 days, advised patient to keep feet dry and apply antifungal powder if wearing socks/sneakers # SIRS (Tachyardia/Leukocytosis): Resolved. - leukocytosis . Normalized - Rx as above # Elevated CPK 1185. - Trending down to 507. S/p IVF. NO kidney injury #Hyponatremia: 131. Due to acute infection. Resolved #Opioid use disorder: On Suboxone at home. Currently on narcotics for pain control # H/o Drug use: denies current use, However, UDS with positive Amphetamine # Anxiety: On clonazepam Disposition: Patient discharged home Condition on discharge: Hemodynamically stable. Tolerated p.o. Discharge activity: As tolerated Discharge diet: Healthy, low-fat. Low salt Discharge medication: See med reconciliation form Discharge follow-up: Primary care physician within 1 week for post hospital follow-up. Wound Clinic in one week Wound Care. Pls see wound note. Discharge diagnosis: B/L LE Cellulitis L>R Time Spent with Patient Time attestation: Total time spent providing and/or coordinating discharge services: Time spent: Greater than 30 minutes Specific discharge activities: 37 minutes EXAM Constitutional Vitals: Temp Pulse Resp BP Pulse Ox O2 Del Method 98.3 F 90 14 140/73 99 04/06/22 07:39 04/06/22 07:39 04/06/22 07:39 04/06/22 07:39 04/06/22 07:39 04/06/22 07:39 General: Young obese male with BMI 34 in no distress alert, Awake, No acute Distress Eyes/N/T: EOMI, clear cornea Head/Neck: neck supple, no JVD CV: RRR, No murmurs, 2+ bilateral lower extremity edema Pulm: Clear b/l, no wheezing/rhonchi/rales. Abd: Obese, soft, nontender, +BS x4 Ext: Bilateral lower extremity 2+ edema and redness/erythema right more than left. Old scar from. Previous wound. No open wound or ulcer. No drainage. No foul smelling. Bilateral upper extremity swelling as well. Patient said this is normal for him. Neuro: Alert, no focal deficits, moves all extremities, Discharge Data Data Completed and Pending Labs on day of discharge: Preliminary micro results at discharge 04/02/22 21:24 Blood Culture - Preliminary Blood 04/02/22 20:35 Blood Culture - Preliminary Blood Discharge Plan Patient/Caregiver Discharge Instructions Activity: increase activity as tolerated Diet: Low Sodium (2gm) Prescriptions: New oxycodone 5 mg Tablet 5 mg PO Q4HP PRN (Reason: Per Pain Protocol) Qty: 35 0RF cephalexin 500 mg capsule 500 mg PO QID 14 Days Qty: 56 0RF Rx Instructions: Lower Ext Cellulitis. Continued clonazepam 1 mg tablet 1 mg PO BID Aldactone 50 mg 1 mg PO QAM losartan 50 mg 1 mg PO QDAY Discontinued buprenorphine HCl 8 mg tablet, sublingual 8 mg SUBLINGUAL QDAY Qty: 30 0RF Rx Instructions: to take in addition to Buprenorphine that is already prescribed. Follow Up Plan Follow up with: Christopher Rowe ARNP [Primary Care Provider] - Elieser Carrillo ARNP [Adv Reg Nurse Practitioner] - (In one week) Patient Disposition: Home, Self-Care Care Plan Goals: Home with Home wound care and follow up Wound clinic in one week and follow PCP or ID in one week Hospital Course: See Ilya bang Prognosis: Fair Rehab Potential: Good I certify that the patient requires SNF services: No Overall status at discharge: patient is progressing back to baseline Discharge Orders: Discharge Order (Routine); Ordered 04/06/22 Ordered By: Tab CARTER VTE Deep Vein Thrombosis/Pulmonary Embolism Present on Admission: No
[2022-04-06] MEDS: CLOTRIMAZOLE CRM 1% 1 DOSE TUBE TOPICAL SCH (13:27)
== END 2022-04-06 13:25 | disposition home or self-care (01) | DRG 603 ==
LOC: ED 16:02 → MEDSUR 16:02
PROVIDERS: ADMIT Internal Medicine; ATTEND Internal Medicine